=== PATIENT | male | born 2000 | race Caucasian/White ===

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

== ENCOUNTER 2021-01-09 16:50 | Emergency (ER) | payer MEDICAID, SELFPAY ==
--- NOTE | 2021-01-09 16:53 | XRR_ITS ---
PROCEDURE INFORMATION: Exam: XR Chest Exam date and time: 01/09/2021 4:53 PM Age: 20 years old Clinical indication: Sternal or substernal pain; Additional info: Chest pain TECHNIQUE: Imaging protocol: XR of the chest. Views: 1 view. COMPARISON: CR XR chest 1V portable [id number] 09/15/2020 6:51 AM FINDINGS: Lungs: No consolidation. There is a calcified granuloma in the right mid lung. Pleural spaces: Unremarkable. No pleural effusion. No pneumothorax. Heart/Mediastinum: Cardiac and mediastinal contours are within normal limits. Bones/joints: Unremarkable. XR/XR chest 1V portable [id number] IMPRESSION: No acute infiltrates. Radiation Dose CTDIVOL = (mGy): DLP = (mGy-cm)
[2021-01-09 16:55] VITALS: BP 158/111; PULSE 103; RESP 20; TEMP 36.6; O2SAT 96; BMI 40.3
[2021-01-09 17:06] VITALS: BP 147/92; PULSE 100; RESP 18; O2SAT 96
--- NOTE | 2021-01-09 17:25 | ED_ITS ---
HPI - Chest Pain General: Chief Complaint: Chest Pain Stated Complaint: SUBSTERNAL CHEST PAIN Time Seen by Provider: 01/09/21 16:52 History of Present Illness: HPI narrative: 20-year-old male presents emergency room with a complaint of having had chest pain all day today. Started already o'clock's morning persisted to this afternoon he states he usually takes his medications regularly but because of this new job he has not been able to do it. He now states he does not have any chest pain at all. Did not radiate into his neck or arm or back he denies any cough no fever sweats or chills. MD complaint: chest pain Onset (ago): hour(s) Timing of current episode: now resolved Onset: during rest Pain location: substernal Pain radiation: none Severity: mild Quality: aching and heaviness Relieving factors: nothing Exacerbating factors: nothing Associated symptoms: Deny abdominal pain, diaphoresis, dyspnea, fever(s), leg ed rosibel, nausea, palpitations, sense of impending doom, syncope or vomiting Treatment prior to arrival: none Review of Systems Const: Denies: fever(s) or diaphoresis ENMT: Denies: throat pain, ear or mastoid pain, nasal discharge or nasal congestion Card: Denies: palpitations or syncope Resp: Denies: dyspnea GI: Denies: abdominal pain, nausea or vomiting : Denies: flank pain, dysuria, urinary frequency or urinary urgency Skin/Breast: Denies: rash or pruritus [facility] PFSH: Medical History Condyloma acuminatum due to human papillomavirus Hypertension Morbid obesity with BMI of 40.0-44.9, adult Psychiatric care Schizoaffective disorder Surgical History No pertinent past surgical history Family History Grandmother Diabetes Other MDD (major depressive disorder), single episode, severe with psychotic features Social History Smoking and tobacco status: never smoked Quit status (tobacco): has quit using tobacco Second hand smoke exposure: Yes Alcohol intake: never Lives independently: Yes Marital status: Single Current gender identity: Male Physical Exam Const: COMMON NORMALS: no acute distress GENERAL APPEARANCE: cooperative and comfortable ORIENTATION/CONSCIOUSNESS: Yes awake, Yes oriented to person, Yes oriented to place and Yes oriented to time HENMT: COMMON NORMALS: normocephalic, atraumatic and hearing grossly normal bilaterally HEAD & SCALP: normocephalic and atraumatic Neck/C-Spine: COMMON NORMALS: no JVD Resp: COMMON NORMALS: normal respiratory effort, No retractions, No use of accessory muscles and clear to auscultation bilaterally AUSCULTATION: clear to auscultation bilaterally Cardio: COMMON NORMALS: no JVD, regular rate, regular rhythm and No murmurs present (Cardio) RATE: regular rate RHYTHM: regular rhythm GI: COMMON NORMALS: Soft to palpation and No hepatosplenomegaly present AUSCULTATION: Yes normoactive bowel sounds PALPATION: Yes Soft to palpation, No Tenderness to palpation present (GI), No Guarding due to palpation present (GI) and Yes No hepatosplenomegaly present Extremity: COMMON NORMALS: normal to inspection, capillary refill normal, no clubbing, cyanosis or edema, no calf tenderness and no pedal edema Neuro: SENSORIUM/ORIENTATION: Yes oriented to person, Yes oriented to place and Yes oriented to time Skin: COMMON NORMALS: no rashes or lesions noted GENERAL SKIN EXAM: no rashes or lesions noted Course Vital Signs: Vital signs: Vital Signs Temperature 97.8 F 01/09/21 16:55 Pulse Rate 102 H 01/09/21 18:29 Respiratory Rate 18 01/09/21 18:29 Blood Pressure 171/120 01/09/21 18:29 Pulse Oximetry 96 01/09/21 18:29 MDM - Chest Pain MDM Narrative: Medical decision making narrative: Labs imaging and EKG reviewed symptoms resolved suspect is GI related start omeprazole discharge home follow-up as needed do recommend he follow-up with primary care doctor reviews blood pressure is markedly elevated. Lab Data: Labs: Lab Results 01/09/21 01/09/21 01/09/21 17:20 17:20 17:20 WBC 6.9 10^3/uL 10^3/ uL (4.5-13.0) RBC 5.20 10^6/uL 10^6 /uL (4.1-5.3) Hgb 15.3 g/dL g/dL (11.7-16.6) Hct 44.8 % % (42.0-52.0) MCV 86.2 fl fl (80-94) MCH 29.4 pg pg (28.0-34.0) MCHC 34.2 g/dL g/dL (30.0-36.0) RDW 12.1 % % (12.1-15.1) Plt Count 262 10^3/cmm 10^3 /cmm (130-400) MPV 10.6 fL H fL (7.4-10.4) Neut % (Auto) 71.8 % % Lymph % (Auto) 15.5 % % [place] % (Auto) 9.9 % % Eos % (Auto) 1.5 % % Baso % (Auto) 0.9 % % Neut # (Auto) 4.95 10^3/uL 10^3 /uL (1.8-8.0) Lymph # (Auto) 1.1 10^3/uL L 10^ 3/uL (1.5-6.5) [place] # (Auto) 0.7 10^3/uL 10^3/ uL (0.2-0.9) Eos # (Auto) 0.1 10^3/uL 10^3/ uL (0.0-0.8) Baso # (Auto) 0.1 10^3/uL 10^3/ uL (0.0-0.1) Nucleated RBC % (a uto) 0 % % Nucleated RBCs # 0.0 /100WBC /100W BC Sodium 139 mmol/L mmol/L (136-145) Potassium 3.7 mmol/L mmol/L (3.5-5.1) Chloride 104 mmol/L mmol/L (98-107) Carbon Dioxide 22 mmol/L mmol/L (22-29) Anion Gap 16.7 (5-19) BUN 13 mg/dL mg/dL (6-20) Creatinine 0.8 mg/dL mg/dL (0.7-1.2) GFR Calculation 124.5 mL/min mL/m in (90-130) Glucose 121 mg/dL H mg/dL (65-115) Calculated Osmolal ity 289 mOsm/kg mOsm/ kg (285-295) Calcium 9.1 mg/dL mg/dL (8.5-10.5) Total Bilirubin 0.4 mg/dL mg/dL (0.15-1.2) AST 24 U/L U/L (0-40) ALT 35 U/L U/L (0-41) Alkaline Phosphata se 62 IU/L IU/L (40-130) Troponin T Baselin e 6 ng/L ng/L (0-15) Total Protein 7.1 g/dL g/dL (6.6-8.7) Albumin 4.2 g/dL g/dL (3.5-5.2) Globulin 2.9 g/dL g/dL (1.3-4.6) Discharge Plan Discharge Patient Disposition: Home Clinical Impression: Atypical chest pain, Elevated blood pressure reading Condition: Stable Prescriptions: New omeprazole 20 mg capsule,delayed release(DR/EC) 20 mg PO DAILY 28 Days RF: 0 No Action lisinopril 10 mg tablet 10 mg PO DAILY Qty: 30 RF: 5 citalopram 20 mg tablet 20 mg PO DAILY 30 Days Qty: 30 RF: 3 lurasidone 120 mg tablet 120 mg PO .qhs 30 Days Qty: 30 RF: 3 prazosin 5 mg capsule 5 mg PO .qhs 30 Days Qty: 30 RF: 3 ibuprofen 600 mg tablet 600 mg PO Q8H PRN (Reason: pain) 10 Days Qty: 30 RF: 0 Discharge Orders: Discharge ED (Routine); Ordered 01/09/21 Ordered By: Jovani Dumont Referrals: Gildardo Cohn MD [Primary Care Provider] - Discharge Diet: Usual diet Discharge Activity: Increase activity as tolerated Patient Instructions: Opioid Safety Activity Restrictions/Additional Instructions: Start Prilosec 20 mg daily follow-up with your primary care doctor within the week to recheck blood pressure. 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
[2021-01-09 17:26] LABS: Basophils # 0.1 10^3/uL (0.0-0.1); Basophils % 0.9 %; Eosinophils # 0.1 10^3/uL (0.0-0.8); Eosinophils % 1.5 %; Hematocrit 44.8 % (42.0-52.0); Hemoglobin 15.3 g/dL (11.7-16.6); Lymphocytes # 1.1 10^3/uL (1.5-6.5); Lymphocytes % 15.5 %; Mean Corpuscular HGB Conc 34.2 g/dL (30.0-36.0); Mean Corpuscular Hemoglobin 29.4 pg (28.0-34.0); Mean Corpuscular Volume 86.2 fl (80-94); Mean Platelet Volume 10.6 fL (7.4-10.4); Monocytes # 0.7 10^3/uL (0.2-0.9); Monocytes % 9.9 %; Neutrophils # 4.95 10^3/uL (1.8-8.0); Neutrophils % 71.8 %; Nucleated Red Blood Cells % 0 %; Platelet Count 262 10^3/cmm (130-400); Red Cell Distribution Width 12.1 % (12.1-15.1); White Blood Count 6.9 10^3/uL (4.5-13.0)
[2021-01-09 17:47] LABS: Alanine Aminotransferase 35 U/L (0-41); Albumin Level 4.2 g/dL (3.5-5.2); Alkaline Phosphatase 62 IU/L (40-130); Anion Gap 16.7 (5-19); Aspartate Amino Transferase 24 U/L (0-40); Blood Urea Nitrogen 13 mg/dL (6-20); Calcium 9.1 mg/dL (8.5-10.5); Carbon Dioxide 22 mmol/L (22-29); Chloride 104 mmol/L (98-107); Globulin 2.9 g/dL (1.3-4.6); Glomerular Filtration Rate 124.5 mL/min (90-130); Glucose 121 mg/dL (65-115); Osmolality Calculated 289 mOsm/kg (285-295); Potassium 3.7 mmol/L (3.5-5.1); Sodium 139 mmol/L (136-145); Total Bilirubin 0.4 mg/dL (0.15-1.2); Total Protein 7.1 g/dL (6.6-8.7); Troponin(5th) Baseline 6 ng/L (0-15)
[2021-01-09 18:29] VITALS: BP 171/120; PULSE 102; RESP 18; O2SAT 96
--- NOTE | 2021-01-09 18:53 | ECG_ITS ---
[facility] Test Date: 2021-01-09 Pat Name: Damián Parnell Department: Room: Gender: Male [place]: : 2000 Requested By: Jovani Atkinson Order Number: [id number] Jose G MD: Evelyn Carrillo M.D. Measurements Intervals Imogene Rate: 95 P: 57 WV: 149 QRS: 27 QRSD: 81 T: 19 QT: 319 QTc: 403 Interpretive Statements SINUS RHYTHM No previous ECG available for comparison Electronically Signed On 01-11-2021 7:42:40 DIRECTOR OF PARKS AND RECREATION by Evelyn Carrillo M.D. [id number]
== END 2021-01-09 18:31 | disposition home or self-care (01) ==
PROVIDERS: Emergency Provider Family Medicine; PCP Family Medicine Adult Medicine
DX: R07.89 Other chest pain (principal); R03.0 Elevated blood-pressure reading, without diagnosis of hypertension; I10 Essential (primary) hypertension
CPT/HCPCS: 71045; 80053; 84484; 85025; 93005; 99283

== ENCOUNTER → 2021-01-23 16:17 | Outpatient (BNVA) | payer MEDICAID, SELFPAY | PROVIDERS: PCP Family Medicine Adult Medicine; Visit Provider Nurse Practitioner Family | DX: I10 Essential (primary) hypertension (principal); M94.0 Chondrocostal junction syndrome [Tietze]; K21.9 Gastro-esophageal reflux disease without esophagitis | CPT/HCPCS: 80053; 82607; 83735; 84443; 85025 ==

== ENCOUNTER → 2021-02-07 09:48 | Outpatient (BNVA) | payer MEDICAID, SELFPAY | PROVIDERS: PCP Family Medicine Adult Medicine; Visit Provider Nurse Practitioner Family | DX: Z20.822 Contact with and (suspected) exposure to COVID-19 (principal) | CPT/HCPCS: 87635 ==

== ENCOUNTER → 2021-05-09 13:44 | Outpatient (BNVA) | payer MEDICAID, SELFPAY | PROVIDERS: PCP Family Medicine Adult Medicine; Visit Provider Psychiatry & Neurology Psychiatry | DX: F25.9 Schizoaffective disorder, unspecified (principal); F32.3 Major depressive disorder, single episode, severe with psychotic features | CPT/HCPCS: 99214 ==

== ENCOUNTER 2021-10-23 15:10 | Inpatient (IN) | payer MEDICAID, SELFPAY ==
[2021-10-23 15:15] VITALS: BP 138/84; PULSE 107; RESP 18; TEMP 36.8; O2SAT 97; BMI 39.5
[2021-10-23 15:53] LABS: Basophils # 0.1 10^3/uL (0.0-0.1); Basophils % 1.3 %; Eosinophils # 0.2 10^3/uL (0.0-0.8); Eosinophils % 2.4 %; Lymphocytes # 1.9 10^3/uL (1.5-6.5); Lymphocytes % 23.8 %; Mean Corpuscular HGB Conc 32.7 g/dL (30.0-36.0); Mean Corpuscular Hemoglobin 28.2 pg (28.0-34.0); Mean Corpuscular Volume 86.3 fl (80-94); Mean Platelet Volume 11.4 fL (7.4-10.4); Monocytes # 0.6 10^3/uL (0.2-0.9); Monocytes % 6.9 %; Neutrophils % 65.3 %; Nucleated Red Blood Cells % 0 %; Platelet Count 266 10^3/cmm (130-400); Red Blood Count 5.68 10^6/uL (4.1-5.3); Red Cell Distribution Width 12.3 % (12.1-15.1)
--- NOTE | 2021-10-23 16:08 | W.ED.PSYCHS ---
HPI - Psych General: Chief Complaint: Psychiatric Symptoms Stated Complaint: HALLUCINATIONS/ HI Time Seen by Provider: 10/23/21 15:22 Source: patient Mode of arrival: ambulatory Limitations: no limitations History of Present Illness: 21-year-old male presents emergency room with acute psychosis with auditory and visual hallucinations last 2 days he is complaining of suicidal homicidal ideation that was returning on the order to get his father's gun or knife and kill someone else. He is very calm about this. He realizes the voices are not real. Patient evidently has a history of schizophrenia was taking Latuda but is not taking anything at this point. Patient denies taking anything to harm himself or having done anything to harm himself to this point. MD complaint: suicidal ideation Onset (ago): day(s) (2) Duration: constant History of same: Yes Relieving factors: none Associated symptoms: Reports auditory hallucinations, visual hallucinations, homicidal ideation and suicidal ideation Treatments prior to arrival: none If self harm: admits thoughts of self harm and has plan Review of Systems Const: Denies: fever(s), chills, body aches, change in appetite, fatigue or malaise ENMT: Denies: throat pain, ear or mastoid pain, nasal discharge or nasal congestion Card: Denies: chest pain, palpitations, irregular heart rhythm, edema, dyspnea on exertion or orthopnea Resp: Denies: dyspnea, productive cough or non-productive cough GI: Denies: abdominal pain, nausea, vomiting, hematemesis, coffee ground emesis, diarrhea, constipation, bloating, hematochezia or melena : Denies: flank pain, dysuria, urinary frequency or urinary urgency Skin/Breast: Denies: rash or pruritus Psych: Reports: visual hallucinations, auditory hallucinations, suicidal ideation and homicidal ideation [facility] ED PFSH: Medical History Condyloma acuminatum due to human papillomavirus Hypertension Morbid obesity with BMI of 40.0-44.9, adult Psychiatric care Schizoaffective disorder Surgical History No pertinent past surgical history Family History Grandmother Diabetes Other MDD (major depressive disorder), single episode, severe with psychotic features Social History Smoking and tobacco status: never smoked Quit status (tobacco): has quit using tobacco Second hand smoke exposure: Yes Alcohol intake: never Lives independently: Yes Marital status: Single Current gender identity: Male Physical Exam Const: COMMON NORMALS: average body habitus GENERAL APPEARANCE: cooperative and comfortable ORIENTATION/CONSCIOUSNESS: Yes awake, Yes oriented to person, Yes oriented to place and Yes oriented to time HENMT: COMMON NORMALS: normocephalic and atraumatic HEAD & SCALP: normocephalic and atraumatic Resp: COMMON NORMALS: normal respiratory effort, No retractions, No use of accessory muscles and clear to auscultation bilaterally AUSCULTATION: clear to auscultation bilaterally Cardio: COMMON NORMALS: regular rate, regular rhythm and No murmurs present (Cardio) RATE: regular rate RHYTHM: regular rhythm GI: COMMON NORMALS: Soft to palpation and No hepatosplenomegaly present AUSCULTATION: Yes normoactive bowel sounds PALPATION: Yes Soft to palpation, No Tenderness to palpation present (GI), No Guarding due to palpation present (GI) and Yes No hepatosplenomegaly present Extremity: COMMON NORMALS: normal to inspection, capillary refill normal, no clubbing, cyanosis or edema, no calf tenderness and no pedal edema Neuro: SENSORIUM/ORIENTATION: Yes oriented to person, Yes oriented to place and Yes oriented to time Skin: COMMON NORMALS: no rashes or lesions noted GENERAL SKIN EXAM: no rashes or lesions noted Course Vital Signs: Vital signs: Vital Signs Temperature 98.2 F 10/23/21 15:15 Pulse Rate 107 H 10/23/21 15:15 Respiratory Rate 18 10/23/21 15:15 Blood Pressure 138/84 10/23/21 15:15 Pulse Oximetry 97 10/23/21 15:15 Oxygen Delivery Me thod 10/23/21 15:15 MDM - Psych Medical Decision Making Patient having auditory visual hallucinations that are instructing him to harm others including himself with a specific plan of using a knife or gun. Placement 96-hour hold discussed Dr. Ace orders written for admission to [facility]. Medical Records I reviewed the patient's medical records. Lab Data I reviewed the patient's lab results. : 10/23/21 15:33 10/23/21 15:33 Laboratory Results WBC 8.0 10^3/uL (4.5-13.0) 10/23/21 15: RBC 5.68 10^6/uL (4.1-5.3) H 10/23/21 15:33 Hgb 16.0 g/dL (11.7-16.6) 10/23/21 15:33 Hct 49.0 % (42.0-52.0) 10/23/21 15: MCV 86.3 fl (80-94) 10/23/21 15: MCH 28.2 pg (28.0-34.0) 10/23/21 15: MCHC 32.7 g/dL (30.0-36.0) 10/23/21 15: RDW 12.3 % (12.1-15.1) 10/23/21 15: Plt Count 266 10^3/cmm (130-400) 10/23/21 15: MPV 11.4 fL (7.4-10.4) H 10/23/21 15:33 Neut % (Auto) 65.3 % 10/23/21 15: Lymph % (Auto) 23.8 % 10/23/21 15:33 [place] % (Auto) 6.9 % 10/23/21 15: Eos % (Auto) 2.4 % 10/23/21 15:33 Baso % (Auto) 1.3 % 10/23/21 15: Neut # (Auto) 5.20 10^3/uL (1.8-8.0) 10/23/21 15:33 Lymph # (Auto) 1.9 10^3/uL (1.5-6.5) 10/23/21 15:33 [place] # (Auto) 0.6 10^3/uL (0.2-0.9) 10/23/21 15: Eos # (Auto) 0.2 10^3/uL (0.0-0.8) 10/23/21 15:33 Baso # (Auto) 0.1 10^3/uL (0.0-0.1) 10/23/21 15: Nucleated RBC % (auto) 0 % 10/23/21 15:33 Nucleated RBCs # 0.0 /100WBC 10/23/21 15:33 Sodium 141 mmol/L (136-145) 10/23/21 15:33 Potassium 3.9 mmol/L (3.5-5.1) 10/23/21 15:33 Chloride 103 mmol/L (98-107) 10/23/21 15:33 Carbon Dioxide 26 mmol/L (22-29) 10/23/21 15:33 Anion Gap 15.9 (5-19) 10/23/21 15:33 BUN 11 mg/dL (6-20) 10/23/21 15:33 Creatinine 0.8 mg/dL (0.7-1.2) 10/23/21 15:33 GFR Calculation 123.2 mL/min (90-130) 10/23/21 15:33 Glucose 87 mg/dL (65-115) 10/23/21 15:33 Calculated Osmolality 291 mOsm/kg (285-295) 10/23/21 15:33 Calcium 10.3 mg/dL (8.5-10.5) 10/23/21 15:33 Total Bilirubin 0.5 mg/dL (0.15-1.2) 10/23/21 15:33 AST 23 U/L (0-40) 10/23/21 15:33 ALT 35 U/L (0-41) 10/23/21 15:33 Alkaline Phosphatase 66 U/L (40-130) 10/23/21 15:33 Total Protein 8.1 g/dL (6.6-8.7) 10/23/21 15:33 Albumin 5.0 g/dL (3.5-5.2) 10/23/21 15:33 Globulin 3.1 g/dL (1.3-4.6) 10/23/21 15:33 Salicylates < 0.3 mg/dL (3-10) L 10/23/21 15:33 Acetaminophen < 5.0 ug/mL (10-30) L 10/23/21 15:33 Discharge Plan Discharge Patient Disposition: Admitted As Inpatient Admit Provider: Heber Ace Clinical Impression: Acute psychosis, Suicidal ideation, Homicidal ideation Condition: Stable Coding Level of Care Code ED Head Of Science for Chg Fwd Exam Detailed
[2021-10-23 16:39] LABS: Alanine Aminotransferase 35 U/L (0-41); Alkaline Phosphatase 66 U/L (40-130); Anion Gap 15.9 (5-19); Aspartate Amino Transferase 23 U/L (0-40); Blood Urea Nitrogen 11 mg/dL (6-20); Calcium 10.3 mg/dL (8.5-10.5); Carbon Dioxide 26 mmol/L (22-29); Chloride 103 mmol/L (98-107); Globulin 3.1 g/dL (1.3-4.6); Glomerular Filtration Rate 123.2 mL/min (90-130); Glucose 87 mg/dL (65-115); Osmolality Calculated 291 mOsm/kg (285-295); Potassium 3.9 mmol/L (3.5-5.1); Sodium 141 mmol/L (136-145); Total Bilirubin 0.5 mg/dL (0.15-1.2); Total Protein 8.1 g/dL (6.6-8.7)
[2021-10-23 16:44] LABS: Acetaminophen < 5.0 ug/mL (10-30); Salicylate < 0.3 mg/dL (3-10)
--- NOTE | 2021-10-23 16:58 | PC.PHAR ---
PT USED TO BE ON CITALOPRAM 20 MG, LISINOPRIL 10MG, LURASIDONE 20MG, MELOXICAM 15MG, AND OMEPRAZOLE 20MG- PT STATES HE HAS NOT TAKEN MEDICATIONS OF ANY KIND SINCE 06/2021
[2021-10-23 18:29] VITALS: BP 165/90; PULSE 112; RESP 16; TEMP 36.8; O2SAT 98
[2021-10-23] MEDS: OLANZapine 5 mg ODT PO (19:24)
[2021-10-23] MEDS: lurasidone 20 mg Tablet PO (19:24)
[2021-10-23] MEDS: nicotine 2 mg Gum BUCCAL (19:52)
[2021-10-23 22:00] VITALS: BP 165/90; PULSE 112; RESP 16; TEMP 36.8; O2SAT 98
[2021-10-24 06:00] VITALS: BP 116/73; PULSE 88; RESP 16; TEMP 36.7; O2SAT 98
[2021-10-24] MEDS: hyDROXYzine 25 mg Capsule 50 MG PO (07:06)
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
[2021-10-24] MEDS: citalopram 20 mg Tablet PO (08:38)
[2021-10-24] MEDS: lisinopril 10 mg Tablet PO (08:38)
[2021-10-24] MEDS: pantoprazole DR 40 mg Tablet PO (08:38)
[2021-10-24] MEDS: meloxicam 7.5 mg tablet 15 MG PO (08:38)
[2021-10-24 14:00] VITALS: BP 114/77; PULSE 92; RESP 18; TEMP 36.6; O2SAT 98
[2021-10-24 20:00] VITALS: BP 110/70; PULSE 90; RESP 17; TEMP 36.9; O2SAT 98
[2021-10-24] MEDS: lurasidone 20 mg Tablet PO (20:22)
[2021-10-25] MEDS: trazodone 50 mg Tablet PO (01:30)
[2021-10-25 06:00] VITALS: BP 117/72; PULSE 85; RESP 16; TEMP 36.5; O2SAT 99
[2021-10-25] MEDS: haloperidol 5 mg Tablet PO ×2 (07:40→16:40)
[2021-10-25] MEDS: nicotine 2 mg Gum BUCCAL (09:03)
[2021-10-25] MEDS: citalopram 20 mg Tablet PO (09:03)
[2021-10-25] MEDS: lisinopril 10 mg Tablet PO (09:03)
[2021-10-25] MEDS: meloxicam 7.5 mg tablet 15 MG PO (09:03)
[2021-10-25 14:00] VITALS: BP 122/74; PULSE 97; RESP 18; TEMP 36.7; O2SAT 98
--- NOTE | 2021-10-25 15:19 | P.NPUPN_ITS ---
Subjective NPU Subjective: Patient presents today reporting that he has really struggled with auditory visual hallucinations today. We discussed the risks benefits and alternatives of initiating Invega and he understood and agreed to proceed as is documented in this note. Otherwise he reports that he is eating and sleeping fine and is dealing with these perceptual disturbances. He was concerned about where he would go when he is discharged because of family concern surrounding his psychotic behavior. Mental Status Exam MSE Comments: This is an obese white male with hospital scrubs on with limited grooming and eye contact. No abnormal movements. Cooperative with exam in mild distress. Speech was decreased rate and volume. Mood described as okay, affect flat. Thought process organized. Thought content: Patient denied current suicidal or homicidal ideation, there were no delusions reported or noted, he endorsed auditory or visual hallucinations that were troubling. Attention and concentration appeared intact and memory was mostly reliable but none were formally tested. He is alert and oriented x3. Insight and judgment are limited and impulse control is limited. Vitals/I&O/Wt Last Vital Signs Temp 98.1 F 10/25/21 14:00 Pulse 97 10/25/21 14:00 Resp 18 10/25/21 14:00 BP 122/74 10/25/21 14:00 Pulse Ox 98 10/25/21 14:00 O2 Del Method 10/25/21 14:00 Data NPU : 10/23/21 15:33 10/23/21 15:33 A&P Assessment and plan (1) Acute psychosis: Status: Acute (2) Suicidal ideation: Status: Acute (3) Homicidal ideation: Status: Acute (4) Schizoaffective disorder: Status: Acute (5) Morbid obesity with BMI of 40.0-44.9, adult: Status: Acute (6) Parent-child relational problem: Status: Acute Plan This is an 19-year-old white male with a long history of psychiatric care, mild developmental delay versus intellectual disability with previous diagnoses of ADHD, schizophrenia/psychosis, major depressive disorder recurrent severe with psychotic features and with significant issues with anger management. 1.? Restart home medications. We will likely discontinue the Latuda. But for now start Invega 6 mg p.o. daily. 2.? Continue every 15 minute checks for safety. 3.? Encourage individual, group and milieu therapy. 4.? We will attempt to get collateral information on this recent event. Involuntary Hold Information 96 Hour Hold: 96 Hour Involuntary Admission: Yes 96 Hour Hold Ending Date: 10/27/21 96 Hour Hold Ending Time: 18:30 Attestations NPU Medical Necessity Statement*: Inpatient hospitalization is medically necessary and the clinically appropriate intervention at this time. We will monitor medications make changes. Likely length of stay 3-5 days. 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
--- NOTE | 2021-10-25 16:40 | PC.NURSE ---
PT TO NURSES STATION REPORTS HEARING VOICES THAT ARE BECOMING LOUDER , REQUESTS PRN HALDOL DUE TO EFFECTIVENESS OF MED THIS AM TO QUIET THE VOICES. PRN HALDOL 5MG GIVEN. PT TO DAYROOM TO WATCH TV, INSTRUCTED TO LET NURSING STAFF KNOW IF HALDOL ISNT EFFECTIVE, PT VERB UNDERSTANDING
[2021-10-25] MEDS: paliperidone ER 6 mg Tablet PO (17:07)
--- NOTE | 2021-10-25 17:48 | PC.NURSE ---
DURING MORNING ASSESSMENT PT ENDORSED HAVING AVH. CONTINUES TO BE DEMONIC FIGURES AND SHADOWS ALONG WITH COMMAND VOICES. PT IS CALM BUT ASK FOR SOMETHING TO HELP WITH THE HALLUCINATIONS. HALDOL PO WAS GIVEN. PROVIDER NOTIFIED.
[2021-10-25 19:59] VITALS: RESP 17
[2021-10-25] MEDS: lurasidone 20 mg Tablet PO (21:36)
[2021-10-26 06:00] VITALS: BP 133/92; PULSE 81; RESP 18; O2SAT 99
[2021-10-26] MEDS: haloperidol 5 mg Tablet PO (08:45)
[2021-10-26] MEDS: paliperidone ER 6 mg Tablet PO (08:45)
[2021-10-26] MEDS: meloxicam 7.5 mg tablet 15 MG PO (08:45)
[2021-10-26] MEDS: citalopram 20 mg Tablet PO (08:45)
[2021-10-26] MEDS: lisinopril 10 mg Tablet PO (08:45)
--- NOTE | 2021-10-26 09:49 | PC.NURSE ---
PT RESTING IN BED FACING WALL NOT DOORWAY DUE TO SEEING SHADOWS. STATES FACING THIS WAY MAKES IT BETTER, I DON'T SEE THE SHADOWS MUCH. PT DENIES PAIN. DENIES SI/HI AT THIS TIME. PT DOES ENDORSE HEARING COMMANDING VOICES THAT ARE TELLING HIM TO LEAVE AND NOT GET HELP. PT ALSO ENDORSES SEEING SHADOWS. HALDOL WAS REQUESTED BY PT. PT REPORTED THE HALDOL IS THE ONLY THING THAT HELPS WITH HIS VOICES. HALDOL 5 MG WAS GIVEN ORDERED. ALL QUESTIONS ANSWERED AND SUPPORT WAS VOICED.
[2021-10-26 14:00] VITALS: BP 117/80; PULSE 86; RESP 18; TEMP 36.6; O2SAT 96
[2021-10-26] MEDS: benztropine 1 mg Tablet PO (15:10)
--- NOTE | 2021-10-26 15:10 | PC.NURSE ---
Addendum entered by Monica Mejia RN 10/26/21 16:16: NOTIFIED DR. CRESPO OF INCREASED PAIN IN JAW. PT BECAME TEARFUL. TYLENOL 650 MG WAS GIVEN FOR JAW PAIN 09/10. PT DID REPORT PAIN IMPROVED AFTER TAKING TYLENOL AND COGENTIN. AFTER DISCUSSION DR. CRESPO GAVE ORDERS TO DISCONTINUE LATUDA 20 MG BEDTIME. Original Note: PRN MEDICATION PT REPORTS IT FEELS LIKE MY TONGUE IS GOING TO SWALLOW ITSELF AND ITS HARD FOR ME TO TALK. DR. CRESPO NOTIFIED IN PERSON. COGENTIN MG GIVEN ORDERED. DR. CRESPO INSTRUCTED THIS RN TO GIVE THE COGENTIN ON MAR ORDERED. EDUCATION PROVIDED TO PT TO LET THIS RN KNOW IF SYMPTOMS WORSEN OR GET BETTER. PT VERBALIZED UNDERSTANDING.
[2021-10-26] MEDS: acetaminophen 325 mg Tablet 650 MG PO (15:27)
[2021-10-26] MEDS: diphenhydrAMINE 50 mg Capsule PO (17:35)
--- NOTE | 2021-10-26 17:37 | PC.NURSE ---
PT STARTED HAVING JAW PAIN AGAIN AND STATES HE JAW IS TIGHT. DR. CRESPO NOTIFIED AND 50 MG OF BENADRYL PO Q 4 HOURS PRN. MEDICATION WAS GIVEN ORDERED. PT THEN STATED HIS JAW PAIN WAS 7/10, NEW ORDERS FOR IBUPROFEN 600 MG PO Q 6 HOURS PRN PAIN. FIRST DOSE OF IBUPROFEN GIVEN ORDERED. PT EDUCATED TO NOTIFY STAFF IF SYMPTOMS WORSES. VITALS OBATINED SPO2 96% ON RA, HR 89 BP 149/78 RR 20. ALL QUESTIONS ANSWERED AND SUPPORT VOICED.
[2021-10-26] MEDS: ibuprofen 600 mg Tablet PO (18:02)
--- NOTE | 2021-10-26 18:26 | P.NPUPN_ITS ---
Subjective NPU Subjective: Patient presents today reporting that he is doing better as far as the voices but at 1 point he was having some EPS with some locking of his jaw which made him quite distressed. Was identified that he had multiple doses of Haldol even after we had discussed changing to Invega due to attempts to control the voices more quickly. We discussed the fact that in addition to his Latuda likely cause this to be overly he discussed with medicine alternatives of discontinuing the Latuda and avoiding Haldol allowing the Invega to do its job and he understood and agreed to proceed as is documented in this note. Mental Status Exam MSE Comments: This is an obese white male with hospital scrubs on with i mproving grooming and eye contact. No abnormal movements. Cooperative with exam in mild distress. Speech was decreased rate and volume. Mood described as a little better, affect flat. Thought process organized. Thought content: Patient denied current suicidal or homicidal ideation, there were no delusions reported or noted, he endorsed reduction in his auditory and visual hallucinations that were troubling. Attention and concentration appeared intact and memory was mostly reliable but none were formally tested. He is alert and oriented x3. Insight and judgment are limited and impulse control is limited. Vitals/I&O/Wt Last Vital Signs Temp 98.1 F 10/26/21 22:00 Pulse 81 10/26/21 22:00 Resp 18 10/26/21 22:00 BP 111/60 10/26/21 22:00 Pulse Ox 97 10/26/21 22:00 O2 Del Method 10/26/21 22:00 Data NPU : 10/23/21 15:33 10/23/21 15:33 A&P Assessment and plan (1) Acute psychosis: Status: Acute (2) Suicidal ideation: Status: Acute (3) Homicidal ideation: Status: Acute (4) Schizoaffective disorder: Status: Acute (5) Morbid obesity with BMI of 40.0-44.9, adult: Status: Acute (6) Parent-child relational problem: Status: Acute Plan This is an 19-year-old white male with a long history of psychiatric care, mild developmental delay versus intellectual disability with previous diagnoses of ADHD, schizophrenia/psychosis, major depressive disorder recurrent severe with psychotic features and with significant issues with anger management. 1.? Restart home medications. Discontinue Latuda and started Invega 6 mg p.o. daily. Advised patient to avoid the as needed's for Haldol at this point and discussed with the nurses. 2.? Continue every 15 minute checks for safety. 3.? Encourage individual, group and milieu therapy. 4.? We will attempt to get collateral information on this recent event. Involuntary Hold Information 96 Hour Hold: 96 Hour Involuntary Admission: Yes 96 Hour Hold Ending Date: 10/27/21 96 Hour Hold Ending Time: 18:30 Attestations NPU Medical Necessity Statement*: Inpatient hospitalization is medically necessary and the clinically appropriate intervention at this time. We will monitor medications make changes. Likely length of stay 1-3 days. 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
[2021-10-26] MEDS: trazodone 50 mg Tablet PO (21:59)
[2021-10-26 22:00] VITALS: BP 111/60; PULSE 81; RESP 18; TEMP 36.7; O2SAT 97
[2021-10-27] MEDS: ibuprofen 600 mg Tablet PO ×2 (01:30→15:06)
[2021-10-27] MEDS: acetaminophen 325 mg Tablet 650 MG PO (05:04)
[2021-10-27] MEDS: diphenhydrAMINE 50 mg Capsule PO (05:04)
[2021-10-27 06:00] VITALS: BP 149/100; PULSE 104; RESP 18; TEMP 36.6; O2SAT 98
[2021-10-27] MEDS: nicotine 2 mg Gum BUCCAL ×4 (06:59→13:38)
[2021-10-27] MEDS: citalopram 20 mg Tablet PO (08:47)
[2021-10-27] MEDS: benztropine 1 mg Tablet PO (08:47)
[2021-10-27] MEDS: lisinopril 10 mg Tablet PO (08:47)
[2021-10-27] MEDS: meloxicam 7.5 mg tablet 15 MG PO (08:47)
[2021-10-27] MEDS: paliperidone ER 6 mg Tablet PO (08:47)
--- NOTE | 2021-10-27 08:48 | PC.NURSE ---
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
[2021-10-27 10:33] VITALS: BP 149/100; PULSE 104; RESP 18; TEMP 36.6; O2SAT 98
--- NOTE | 2021-10-27 11:44 | W.PM.NPUDCS ---
Diagnoses at Discharge Discharge Diagnosis (1) Acute psychosis: Status: Acute (2) Suicidal ideation: Status: Acute (3) Homicidal ideation: Status: Acute (4) Schizoaffective disorder: Status: Acute (5) Morbid obesity with BMI of 40.0-44.9, adult: Status: Acute (6) Parent-child relational problem: Status: Acute Reason for Visit Reason for Visit: HALLUCINATIONS/ HI Brief History: History of Present Illness Damián Parnell is a 21 year old male who presented to the emergency department with the following report: Chief Complaint: Psychiatric Symptoms Stated Complaint: HALLUCINATIONS/ HI Time Seen by Provider: 10/23/21 15:22 Source: patient Mode of arrival: ambulatory Limitations: no limitations History of Present Illness:?? 21-year-old male presents emergency room with acute psychosis with auditory and visual hallucinations last 2 days he is complaining of suicidal homicidal ideation that was returning on the order to get his father's gun or knife and kill someone else.? He is very calm about this.? He realizes the voices are not real.? Patient evidently has a history of schizophrenia was taking Latuda but is not taking anything at this point.? Patient denies taking anything to harm himself or having done anything to harm himself to this point. MD complaint: suicidal ideation Onset (ago): day(s) (2) Duration: constant History of same: Yes Relieving factors: none Associated symptoms: Reports auditory hallucinations, visual hallucinations, homicidal ideation and suicidal ideation Treatments prior to arrival: none If self harm: admits thoughts of self harm and has plan. He was admitted to the neuropsychiatric unit for definitive treatment of those issues.? He presents today reporting that there have not been any significant changes since he was seen by this health science writer near [place] in 2019 and he had 1 additional hospitalization after that.? About 6 to 7 months ago he discontinued his medications and subsequently started drifting into worsening depression and having psychotic symptoms.? He really had no explanation for why he stopped going but once he stopped the medication he identified that he did get worse.? We identified that there have been no substantive changes in his life.? He still lives with his family, not using drugs and not doing well now off of the medication.? We discussed the risk benefits and alternatives of restarting the medication and he understood and agreed to proceed as documented in this note. Per his 02/23/[address] [facility] inpatient psychiatric evaluation: History of Present Illness Damián Parnell is a 19 year old male who presented to the ED with the following report: Chief Complaint: Psychiatric Symptoms Stated Complaint: homicidal thoughts Time Seen by Provider: 02/22/20 09:09 History of Present Illness:?? HPI Narrative: Patient is an 19-year-old male who comes to the ED with homicidal thoughts.? Patient currently lives with his father and stepmother.? He says that they do not get along well or always fighting.? For the past couple weeks he says he said thoughts of stabbing his father and stepmother with a knife.? He says the thoughts just been increasing and he would like to get help.? He endorses feeling depressed and not sleeping very well.? He also expresses having loss of interest in things.? Endorses having auditory hallucinations and also says he sees dark shadows that are not there.? Denies any thoughts of suicide.? Patient does see a psychiatrist and he says his next appointment is in March.? He is supposed to be on olanzapine but he has not been taking it due to cost. Associated symptoms: Reports auditory hallucinations, visual hallucinations, depression and homicidal ideation; Deny suicidal ideation. He was admitted to the neuropsychiatric unit for definitive treatment of those issues.? Damián presents today reporting that he is in the 12th grade at school.? He denies ever having any psychiatric inpatient services but has been in treatment at [facility] well time.? Records show treatment going back to 2007 with some reports of concerns for fine motor delay exceptor.? He reports his last appointment was in the spring of this year.? He denies cigarette, alcohol marijuana or any illicit drug use.? He does report vaping and denies ever going to rehab or having a DUI.? He denies any history of suicide attempts but reports that he started having thoughts to kill father and stepmother not looking to the hospital.? We reviewed his 10/02/2018 [facility] outpatient an excerpt is included below.? He endorses that is an accurate reflection of his psychiatric history. Psychiatric history: As above. Substance abuse history: As above. Family history: He reports his dad has schizophrenia there may be some addiction issues on dad side but denied any suicide attempts or completions that run in the family. Developmental history: He denies any issues with his or delivery.? He reports he learned to walk and talk and met his developmental milestones on time but reports were suggesting some possible delays.? And then he reports needing speech therapy, learning support, emotional support and special education classes. Psychosocial history: His parents were together when he was born but ultimately split up.? He is the only child from that union.? His mother has one other child and his father has 5 other children that would be his half siblings.? He reports that his childhood was pretty good until his parents and he got rougher then.? He denies any emotional, physical or sexual abuse.? He is currently in the 12th grade.? He reports that he is a heterosexual and has had 2 girlfriends.? He never been , he has never had children, he is never been in the and he endorses being a Sabianism.? His longest job he reports was at [employer] in [place] but he reports he quit her job because there was somebody that was making him really angry and was having thoughts to kill them.? He currently lives in a home with his stepmom and dad and a half brother. Legal history: He denies fci or legal peril. Medical history: Endorses only obesity. Per his 10/02/2018 [facility] outpatient evaluation: Time: In: 1000 ? Out: 1047 ? Settings: Office Patient Marital Status: Single Patient Sex: male Patient Race: Present Illness: Informants: Client was accompanied to this session by: father Gilberto Parnell. Referral Source: self Chief Complaint: Client reports: per intake form: I feel like my anger issues has got worse . History of Present Illness: Per client: It's hard for me to learn because I can't concentrate and stay on task. I stay to myself in school, until it is lunch time and then I hang out with my brother. We moved around a lot last year because of my dad's ex's and girlfriends. I went to three different schools. I've gotten in trouble for stealing, not listening to people. I got probation. It's hard to concentrate at school, staying on task and doing work. When there is something on the board, I'll get distracted and look the other way. I'm horrible with homework, if there is something I don't know then I ll ask dad and he doesn't know either. Or i'll get homework done and I'll forget it. It's hard to stay sitting at school. I'll just try to think about something else. It's hard to relax, it's almost like painful. I play with my hands all day. I've been working at [employer] for two months. I get nervous and then I get angry. When people walk around and say stuff, I think they're talking about me. It makes me frustrated. Then I'll just try to walk out but then it doesn't work. My anger issues have gotten worse from about a year ago. Dad's girlfriends I think made it get worse. I get nervous at work every time. I get nervous around others at work to. I worry about my boss firing me. I feel sad sometimes, like every other day, it doesn't last long though - like an hour. When someone is yelling at me I'll get mad. Then I'll try to hurt them. Like my brother and my step-brother, and his . I've thought about hitting people at work, I try to stop myself before I do it. I will usually just go somewhere else and stay to myself. If there is a lot of people, I don't like a lot of people. I get claustrophobia and feel like I m in a tight space. My step-brother is the one who makes me angry, he makes my day worse and worse. We get into arguments everyday. When I try to walk off he keeps coming up and bothering me still. Sometimes when people talk trash about my real brother I don't approve of it and I'll find them and tell them they better stop. I'll yell at them. Trauma/Abuse Reported:? Witness to Violence Details of Abuse/Trauma: with my dad when his schizophrenia kicks in Individual's Strengths/Skills:? Cooperative, Seeks Treatment, Motivated, Responds to Limits, Active Treatment History Treatment History: Psychiatric/Substance Abuse ? ? ? Treatment Service History ? Date of Service Type of Service Reason Name of Agency 2014 outpatient mental health? - med mgmt and therapy anger issues [facility] around 2016 inpatient anger issues [facility] ? Response to Past Treatment: Individual served reports the following regarding past treatment to be helpful/not helpful: not helpful at [facility] but sort of helpful with therapy . Addictive Behavior: Substance Abuse: ? Acknowledge ? Age Duration Frequency Acknowledge Drug History ? Use of Onset ?of Use ? of Use ? ? as Problem of Relapse Alcohol N ? Cannabis N ? Amphetamine N ? Prescription Medication N ? Nicotine N ? Gambling N ? Compulsive Spending N ? Other Drugs/ N ? Addictive Behaviors ? Client denies use of any substance. Consequences of Addictions:? Not Applicable Risk Assessment: Suicidal/Homicidal Risk:? Client Denies: suicidal thoughts/behave, suicidal intent, suicidal plan, homicidal thoughts/behave, homicidal intent, homicidal plan Individual Served/Guardian has been given information regarding the Crisis Hotline.? The Individual Served/Guardian has contracted to use Crisis Hotline services as needed and is aware it is available 24 hours a day, seven days a week.? Reports no SI/HI currently. Suicide Risk Assessment ? YES NO Sex (Male) x ? Age (16 or Older) x ? Depression of affective disorder ? x Previous suicide attempt or psychiatric care ? x Ethanol or drug abuse ? x Rational thinking loss (Psychosis) ? x Social support lacking ? x Organized plan or attempt ? x Negligent parenting, significant stressors, suicidal modeling ? ? by parents or siblings x ? School problems (Agressive behaviors or experiencing humiliation) x ? Total ( 1 point for each positive answer above) 4 ? Score Risk 0-2 ? Low Risk; No serious threat 3-6 ? Moderate Risk; Supervision at home/Psychiatric consult 7-10 ? High Risk; Supervision/Psychiatric consult/ Hospitalization Medical History: Primary Care Provider: None reported Last Physical Exam:? More than 1 year ago Current Medications: None reported Food/Drug Allergies: None reported Client's Medical History:? Surgical Procedure ( surgery on my neck from cat scratch fever ) Family History: Family Medical History:? Cancer (grandmother), Diabetes Family Psychiatric History:? Schizophrenia ( dad ) Substance Abuse within Family:? None Reported History of Suicide in Family:? No Pain Assessment Pain Present:? No Nutritional Status: Primary Indicator:? BMI Equal to 30 Nutritional Assessment:? External Referral Not Completed Food Related Behaviors:? Denies diagnosed eating disorder Attitudes Regarding Food: Client denies any concerns. My favorite food is [place] sandwiches. I don't like vegetables. Behaviors Regarding Food: We don't eat dinner as a family. We all seperate and go to our rooms. I usually eat whatever is made for dinner. Family's Observations: N/A Psychosocial History: Custody Status: Client's legal guardian is father Gilberto Parnell. Childhood/Family History: Individual Served reports pertinent childhood/family history to include per client: I was born in [place] and raised in [place]. My dad and mom raised me. They when I was 16. Mainly dad raises me. I see my mom on the weekends. I have four brothers. One is older and the others are younger. I'm close with my brothers. Developmental History: Client/Guardian report that the per father normal . Substance Use in :? Denied substance used while preg. Normative Development:? Milestones occur on time (per dad: I honestly don't remember ) Current Living Environment:? Parent/Immediate Family ( with dad, step-mom, step-mom's brother, and one brother ) Family Circumstances: Individual Served reports pertinent family circumstances including bereavement to include parents two years ago.? I'm really close with my dad and my brother, it's good. We moved a lot last year because of dad's ex's and girlfriends. I went to three different schools last year . Ability to Care for Self:? Reports being able to care for self Social/Peer Setting:? Family, Friends Christianity/Spiritual Pursuits:? Nonreligious/Secular Leisure/Recreational: I like to play on my phone. History:? Client denies? service Educational Status: Level of Completed Education:? Currently Attending School (11th grade at [employer]) Academic Performance:? Performance below grade level Extracurricular Activities:? None Behavioral Problems in School:? Present Attitude Toward Academics:? Neutral ( It's hard for me to learn ) Preferred Areas of Study:? Other: ( Ag ) Future Education:? Plan for future education ( I want to go to college, I want to be an automechanic ) Language(s) Spoken:? Andorran Vocational Status: Vocational Information:? Currently Employed ( [employer] ) Financial Information:? Dependence on Parents, Salary [facility] Assessment-Child Legal: Legal Status/History:? Current legal issues reported Legal Issues Reported:? Past Conviction ( for stealing, it will be on my record until I'm 19 ), Current Probation/[place] ( I can't remember the probation's name ) Affect on Treatment:? Legal issues will not affect treat Community Resources:? Family, Friends, Juvenile Services, [facility] Hospital Course Hospital Course He quickly acclimated to the individual, group and milieu therapies provided. But was having continued psychosis/hallucinations. Invega 6 mg p.o. daily was initiated and the Latuda was discontinued. He did have an episode where he had EPS with clenched jaw but he has been taking all 5 mg as needed multiple doses. He was also taking Latuda at the time. Latuda was then discontinued and we refrained from Haldol and the side effects resolved. He worked with the treatment team to talk to his family to be sure what the recommendations were for him to come home. He had marked improvement and was able to contract for safety outside of the hospital prior to discharge. During the hospitalization, patient had routine laboratory studies which were within normal limits except for few outliers. Additionally there was a general medical evaluation which was also within normal limits and revealed no new acute processes. Discharge Summary: At the time of discharge, lethality was denied and psychosis was resolving. Mood and anxiety were well managed. Patient endorsed a plan to avoid all drugs of abuse and follow-up with the aftercare recommendations of the treatment team. Patient was evaluated and deemed to be absent credible lethality, and had achieved the maximum benefit from an inpatient hospitalization, so was discharged. Involuntary Hold Information 96 Hour Hold: 96 Hour Involuntary Admission: Yes 96 Hour Hold Ending Date: 10/27/21 96 Hour Hold Ending Time: 18:30 Mental Status Exam MSE Comments: This is an obese white male with hospital scrubs on with improving grooming and eye contact. No abnormal movements. Cooperative with exam in no acute distress. Speech was more normal rate and volume. Mood described as good, affect brighter. Thought process organized. Thought content: Patient denied current suicidal or homicidal ideation, there were no delusions reported or noted, he endorsed reduction in his auditory and visual hallucinations that were troubling. Attention and concentration appeared intact and memory was mostly reliable but none were formally tested. He is alert and oriented x3. Insight and judgment are limited and impulse control is limited. Discharge Data Studies Completed and Pending: Laboratory Results WBC 8.0 10^3/uL (4.5- 13.0) 10/23/21 15:33 RBC 5.68 10^6/uL (4.1 -5.3) H 10/23/21 15:33 Hgb 16.0 g/dL (11.7-1 6.6) 10/23/21 15: Hct 49.0 % (42.0-52.0 ) 10/23/21 15: MCV 86.3 fl (80-94) 10/23/21 15: MCH 28.2 pg (28.0-34. 0) 10/23/21 15: MCHC 32.7 g/dL (30.0-3 6.0) 10/23/21 15:33 RDW 12.3 % (12.1-15.1 ) 10/23/21 15:33 Plt Count 266 10^3/cmm (130 -400) 10/23/21 15:33 MPV 11.4 fL (7.4-10.4 ) H 10/23/21 15:33 Neut % (Auto) 65.3 % 10/23/21 15:33 Lymph % (Auto) 23.8 % 10/23/21 15:33 Assumption % (Auto) 6.9 % 10/23/21 15:33 Eos % (Auto) 2.4 % 10/23/21 15:33 Baso % (Auto) 1.3 % 10/23/21 15:33 Neut # (Auto) 5.20 10^3/uL (1.8 -8.0) 10/23/21 15:33 Lymph # (Auto) 1.9 10^3/uL (1.5- 6.5) 10/23/21 15:33 Assumption # (Auto) 0.6 10^3/uL (0.2- 0.9) 10/23/21 15:33 Eos # (Auto) 0.2 10^3/uL (0.0- 0.8) 10/23/21 15:33 Baso # (Auto) 0.1 10^3/uL (0.0- 0.1) 10/23/21 15:33 Nucleated RBC % (a uto) 0 % 10/23/21 15:33 Nucleated RBCs # 0.0 /100WBC 10/23/21 15:33 Sodium 141 mmol/L (136-1 45) 10/23/21 15:33 Potassium 3.9 mmol/L (3.5-5 .1) 10/23/21 15:33 Chloride 103 mmol/L (98-10 7) 10/23/21 15:33 Carbon Dioxide 26 mmol/L (22-29) 10/23/21 15:33 Anion Gap 15.9 (5-19) 10/23/21 15:33 BUN 11 mg/dL (6-20) 10/23/21 15:33 Creatinine 0.8 mg/dL (0.7-1. 2) 10/23/21 15:33 GFR Calculation 123.2 mL/min (90- 130) 10/23/21 15:33 Glucose 87 mg/dL (65-115) 10/23/21 15:33 Calculated Osmolal ity 291 mOsm/kg (285- 295) 10/23/21 15:33 Calcium 10.3 mg/dL (8.5-1 0.5) 10/23/21 15:33 Total Bilirubin 0.5 mg/dL (0.15-1 .2) 10/23/21 15:33 AST 23 U/L (0-40) 10/23/21 15:33 ALT 35 U/L (0-41) 10/23/21 15:33 Alkaline Phosphata se 66 U/L (40-130) 10/23/21 15:33 Total Protein 8.1 g/dL (6.6-8.7 ) 10/23/21 15:33 Albumin 5.0 g/dL (3.5-5.2 ) 10/23/21 15:33 Globulin 3.1 g/dL (1.3-4.6 ) 10/23/21 15:33 Salicylates < 0.3 mg/dL (3-10 ) L 10/23/21 15:33 Acetaminophen < 5.0 ug/mL (10-3 0) L 10/23/21 15:33 Vitals: Last Vital Signs Temp 97.9 F 10/27/21 10:33 Pulse 104 H 10/27/21 10:33 Resp 18 10/27/21 10:33 BP 149/100 10/27/21 10:33 Pulse Ox 98 10/27/21 10:33 O2 Del Method 10/27/21 06:00 Discharge Plan Discharge Patient Disposition: Home Condition: Stable Prescriptions: New paliperidone 6 mg Tablet Extended Release 24hr 6 mg PO DAILY 30 Days Qty: 30 1RF benztropine 1 mg Tablet 1 mg PO BID PRN (Reason: Mild Extrapyramidal symptoms) 30 Days Qty: 60 1RF Continued meloxicam 15 mg tablet 15 mg PO DAILY 30 Days Qty: 30 1RF citalopram 20 mg tablet 20 mg PO DAILY 30 Days Qty: 30 1RF lisinopril 10 mg tablet 10 mg PO DAILY 30 Days Qty: 30 0RF omeprazole 20 mg capsule,delayed release(DR/EC) 20 mg PO DAILY 30 Days Qty: 30 1RF Discontinued Latuda 20 mg tablet 20 mg PO BEDTIME prazosin 2 mg Capsule 2 mg PO QPM Discharge Orders: Discharge Order (Routine); Ordered 10/27/21 Ordered By: Heber Ace Referrals: [facility] [Outside] Gildardo Cohn MD [Primary Care Provider] - Discharge Diet: Regular Discharge Activity: Resume usual activity Patient Instructions: Paliperidone (By mouth) (Invega), Opioid Safety Discharge Attestations NPU Time Spent in Discharge Care*: less than 30 min Specific Discharge Activities: Specific discharge activities: educating patient, discussing with caser up/social workers/dc planners, documenting/other paperwork and evaluating patient/reviewing data Status at Discharge: Cognitive status at discharge: cognitively intact, Behavioral status at discharge: cooperative, Coding Level of Care Code Acute Chg FW DC note Diagnoses Acute psychosis F23 Suicidal ideation R45.851 Homicidal ideation R45.850 Schizoaffective disorder F25.9 Morbid obesity with BMI of 40.0-44.9, adult E66.01; Z68.41 Parent-child relational problem Z62.820
== END 2021-10-27 16:32 | disposition home or self-care (01) | DRG 885 ==
LOC: ER 16:11 → NP 17:30
PROVIDERS: Admitting Provider Psychiatry & Neurology Psychiatry; Emergency Provider Family Medicine; PCP Family Medicine Adult Medicine; Visit Provider Psychiatry & Neurology Psychiatry
DX: F25.1 Schizoaffective disorder, depressive type (principal); R45.851 Suicidal ideations; Z68.41 Body mass index [BMI] 40.0-44.9, adult; Z81.8 Family history of other mental and behavioral disorders; I10 Essential (primary) hypertension; R45.850 Homicidal ideations; Z63.9 Problem related to primary support group, unspecified; Z62.820 Parent-biological child conflict; F90.9 Attention-deficit hyperactivity disorder, unspecified type; E66.01 Morbid (severe) obesity due to excess calories
CPT/HCPCS: 80053; 80307; 85025; 97150; 97165; 99285; Q0163

== ENCOUNTER → 2021-12-19 12:34 | Outpatient (BNVA) | payer OTHER, SELFPAY | PROVIDERS: PCP Family Medicine Adult Medicine; Visit Provider Psychiatry & Neurology Psychiatry | DX: F25.1 Schizoaffective disorder, depressive type (principal); Z79.899 Other long term (current) drug therapy | CPT/HCPCS: 80061; 83036 ==

== ENCOUNTER 2021-12-30 21:31 | Emergency (ER) | payer MEDICAID, SELFPAY ==
[2021-12-26 14:56] VITALS: BP 123/80; BMI 42.9
[2021-12-30 22:05] VITALS: BP 137/72; PULSE 133; RESP 16; TEMP 36.7; O2SAT 96; BMI 42.1
[2021-12-30 22:41] LABS: Add Urine Microscopic? YES; Bilirubin Urine Neg (Negative); Blood Urine 3+ (Negative); Glucose Urine UA Norm (Normal); Ketones Urine Negative (Negative); Leukocyte Esterase Urine 2+ (Negative); Nitrate Urine Positive (Negative); Protein Urine 2+ (Negative); Specific Gravity, Urine 1.015 (1.005-1.030); Urine Appearance Cloudy (CLEAR); Urine Color Yellow (Yellow); Urobilinogen Urine Neg (Negative); pH Urine 6 (5-7)
[2021-12-30 22:44] LABS: Add Urine Culture? Yes; Bacteria Urine TRACE /hpf; RBC Urine TOO NUMEROUS TO CNT /hpf (0-2); Squamous Epithelial Cell Urine 0-4 /hpf (0-5); WBC Urine 15-25 /hpf (0-5)
--- NOTE | 2021-12-31 00:17 | ED_ITS ---
HPI - Male Genitourinary General: Chief complaint: Urogenital-Male Stated complaint: Hurts to pee Time Seen by Provider: 12/31/21 00:15 History of Present Illness: Patient is a 21-year-old male that comes to the ED with dysuria. Symptoms started a couple hours prior to arrival. He endorses having a burning pain when he urinates. He says his urine has been clear today. Denies any fevers, nausea/vomiting, abdominal pain, back pain or flank pain. Associated symptoms: Reports dysuria; Deny hematuria, nausea or vomiting Review of Systems Const: Denies: fever(s), chills or fatigue Eyes: Denies: change in vision or eye discomfort ENMT: Denies: throat pain, odynophagia, nasal discharge or nasal congestion Card: Denies: chest pain, palpitations, edema, swelling of feet/ankles, dyspnea on exertion or orthopnea Resp: Denies: dyspnea, productive cough or non-productive cough GI: Denies: abdominal pain, nausea, vomiting, diarrhea, constipation or hematochezia : Reports: dysuria; Denies: flank pain, difficulty urinating or hematuria Musc: Denies: neck pain, back pain or extremity swelling Skin/Breast: Denies: rash or new lesions Neuro: Denies: headache(s), numbness in extremities or weakness in extremities PFS ED PFSH: Medical History Condyloma acuminatum due to human papillomavirus Hypertension Morbid obesity with BMI of 40.0-44.9, adult Psychiatric care Schizoaffective disorder Surgical History No pertinent past surgical history Family History Grandmother Diabetes Mother Hypertension Other MDD (major depressive disorder), single episode, severe with psychotic features Social History Smoking and tobacco status: current every day smoker cigarettes [ Other cigarette details: 1 Pack per 7 day], e-cigarettes E-Cigarette Details: vaporizer device E-cig/vape details: 0.6% only vape every 2 days and smokeless tobacco Smokeless tobacco user: chewing tobacco Smokeless tobacco details: 1 can every month Quit status (tobacco): has quit using tobacco Year quit tobacco: 10/22 for 8 months Second hand smoke exposure: Yes Alcohol intake: never Lives independently: Yes Household members: other Details: grandma Housing: Apartment Marital status: Single Highest education level completed: High School Graduate Current occupational status: unemployed Current occupational exposures/hazards: No Pets and animals: Yes Pets & animals: cat(s) History of recent travel: No Leisure activites: other Leisure activities details: video games, sleep Sexually active: No Current gender identity: Male Kat/Methodist: None Special kat needs: No Agree to transfusion: Yes Financial difficulty paying for basics: Not Very Hard Physical Exam Const: COMMON NORMALS: no acute distress, patient oriented x3, healthy appearing and alert GENERAL APPEARANCE: cooperative and comfortable HENMT: COMMON NORMALS: normocephalic HEAD & SCALP: normocephalic MOUTH: Normal oral and palatal mucosa present THROAT: posterior oropharynx normal and uvula midline Neck/C-Spine: COMMON NORMALS: supple GENERAL: Yes normal visual inspection Resp: COMMON NORMALS: normal respiratory effort, No retractions, No use of accessory muscles and clear to auscultation bilaterally AUSCULTATION: clear to auscultation bilaterally Cardio: COMMON NORMALS: regular rate, regular rhythm, S1 normal heart sound present, S2 normal heart sound present, No gallops present (Cardio), No clicks present (Cardio), No murmurs present (Cardio) and Peripheral pulses 2+ throughout RATE: regular rate RHYTHM: regular rhythm HEART SOUNDS: S1 normal heart sound present and S2 normal heart sound present PERIPHERAL PULSES: Peripheral pulses 2+ throughout GI: COMMON NORMALS: Normal to inspection, nondistended, normoactive bowel sounds present, Soft to palpation, non-tender and no masses PALPATION: Yes Soft to palpation : COMMON NORMALS: Yes no CVA tenderness BLADDER/KIDNEY EXAM: Yes no CVA tenderness Back/Pelvis: COMMON NORMALS: no CVA tenderness Extremity: COMMON NORMALS: normal to inspection Neuro: COMMON NORMALS: patient oriented x3 SENSORIUM/ORIENTATION: Yes alert GAIT: Yes Normal gait present Skin: GENERAL SKIN EXAM: dry skin Course Vital Signs: Vital signs: Vital Signs Temperature 98.1 F 12/30/21 22:05 Pulse Rate 133 H 12/30/21 22:05 Respiratory Rate 15 12/31/21 00:38 Blood Pressure 137/72 12/30/21 22:05 Pulse Oximetry 96 12/30/21 22:05 Oxygen Delivery Me thod 12/30/21 22:05 MDM - Male Medical Decision Making Patient is a 21-year-old male comes to the ED with pain when urinating. Symptoms started today. Denies any fevers, hematuria, nausea/vomiting, back pain, flank pain or abdominal pain. Vitals are stable. Exam of patient is benign and he appears nontoxic in no acute distress or pain. UA shows signs of a UTI. Patient was given a dose of cefdinir here in the ED. He is diagnosed with UTI and discharged home with a prescription for cefdinir. Told to follow- up with his PCP within the next week for reevaluation return to ED precautions given. Patient understood and agreed with plan. Lab Data I reviewed the patient's lab results. Laboratory Results Urine Color Yellow (Yellow) 12/30/21 22: Urine Appearance Cloudy (CLEAR) A 12/30/21 22: Urine pH 6 (5-7) 12/30/21 22:05 Ur Specific [place] 1.015 (1.005-1.030) 12/30/21 22:05 Urine Protein 2+ (Negative) H 12/30/21 22:05 Urine Glucose (UA) Norm (Normal) 12/30/21 22: Urine Ketones Negative (Negative) 12/30/21 22: Urine Blood 3+ (Negative) H 12/30/21 22:05 Urine Nitrate Positive (Negative) H 12/30/21 22:05 Urine Bilirubin Neg (Negative) 12/30/21 22: Urine Urobilinogen Neg mg/dL (Negative) 12/30/21 22:05 Ur Leukocyte Esterase 2+ (Negative) H 12/30/21 22:05 Urine RBC Too numerous to cnt /hpf (0-2) H 12/30/21 22:05 Urine WBC 15-25 /hpf (0-5) H 12/30/21 22:05 Ur Squamous Epith Cells 0-4 /hpf (0-5) H 12/30/21 22:05 Amorphous Sediment Not Reportable 12/30/21 22: Urine Bacteria Trace /hpf (NONE) 12/30/21 22:05 Discharge Plan Discharge Patient Disposition: Home Clinical Impression: UTI (urinary tract infection) Qualifiers: Urinary tract infection type: acute cystitis Hematuria presence: with hematuria Qualified Code(s): N30.01 - Acute cystitis with hematuria Condition: Stable Prescriptions: New cefdinir 300 mg capsule 300 mg PO BID 10 Days Qty: 20 0RF No Action lisinopril 10 mg tablet 10 mg PO DAILY meloxicam 15 mg tablet 15 mg PO DAILY PRN paliperidone 9 mg tablet extended release 24hr 9 mg PO .q hs Qty: 30 1RF Rx Instructions: Take one tablet daily at bedtime at 8 PM; stop quetiapine prazosin 1 mg capsule 2 mg PO .q hs Qty: 60 1RF Rx Instructions: Take two capsules daily at bedtime; hold for low blood pressure sertraline 100 mg tablet 200 mg PO .q am Qty: 60 1RF Rx Instructions: For 4 days:Take one and one-half tablets every morning, then two tablets every morning benztropine 1 mg tablet 1 mg PO BID PRN (Reason: Mild Extrapyramidal symptoms) 30 Days Qty: 60 1RF omeprazole 20 mg capsule,delayed release(DR/EC) 20 mg PO DAILY 30 Days Qty: 30 1RF Discharge Orders: Discharge ED (Routine); Ordered 12/31/21 Ordered By: Fransisco Hernandes Referrals: Gildardo Cohn MD [Primary Care Provider] - Discharge Diet: Regular Discharge Activity: Resume usual activity Patient Instructions: Urinary Tract Infection in Men (DC) Activity Restrictions/Additional Instructions: Follow-up with medical provider as directed in the next 7 to 10 days for reevaluation. Take medications as prescribed. Drink plenty of fluids and stay hydrated. Return to the ER or your medical provider if condition worsens. Please read and understand discharge instructions. Thank you for choosing [facility] for your healthcare needs today. Please realize this is an emergency room and that we are providing you with a medical screening exam and this may not be complete and all inclusive of all the testing and or work up that you may need to determine your ailment or severity of your illness. It is very important that you follow up as instructed or that you return to the Emergency Department should you have concerns or if your condition changes or worsens in any way. Coding Level of Care Code ED Support Clerk for Dae Garcia Exam Comprehensive
[2021-12-31] MEDS: cefdinir 300 MG CAPSULE PO (00:34)
[2021-12-31 00:38] VITALS: RESP 15
== END 2021-12-31 00:39 | disposition home or self-care (01) ==
PROVIDERS: Emergency Provider Physician Assistant; PCP Family Medicine Adult Medicine
DX: N30.01 Acute cystitis with hematuria (principal); I10 Essential (primary) hypertension; F17.210 Nicotine dependence, cigarettes, uncomplicated
CPT/HCPCS: 81001; 87077; 87086; 87186; 99283

== ENCOUNTER 2022-01-01 18:44 | Emergency (ER) | payer MEDICAID, SELFPAY ==
[2021-12-26 14:56] VITALS: BP 123/80; BMI 42.9
[2022-01-01 19:59] VITALS: BP 160/80; PULSE 152; RESP 20; TEMP 38.4; O2SAT 96
--- NOTE | 2022-01-01 20:05 | XRR_ITS ---
PROCEDURE INFORMATION: Exam: XR Chest Exam date and time: 01/01/2022 8:26 PM Age: 21 years old Clinical indication: Fever TECHNIQUE: Imaging protocol: Radiologic exam of the chest. Views: 1 view. COMPARISON: CR XR chest 1V portable [id number] 01/09/2021 5:02 PM FINDINGS: Lungs: Lungs are clear bilaterally. Pleural spaces: No pleural effusion. No pneumothorax. Heart/Mediastinum: The cardiac silhouette and mediastinal contours are unremarkable. Bones/joints: Unremarkable for age. XR/XR chest 1V portable [id number] IMPRESSION: Negative chest radiograph.
--- NOTE | 2022-01-01 20:06 | CTR_ITS ---
PROCEDURE INFORMATION: Exam: CT Abdomen And Pelvis Without Contrast Exam date and time: 01/01/2022 8:28 PM Age: 21 years old Clinical indication: Patient HX: Fever with hematuria. ; Additional info: Hematuria, fever TECHNIQUE: Imaging protocol: Computed tomography of the abdomen and pelvis without contrast. Sagittal and coronal reformatted images were created and reviewed. Radiation optimization: All CT scans at this facility use at least one of these dose optimization techniques: automated exposure control; mA and/or kV adjustment per patient size (includes targeted exams where dose is matched to clinical indication); or iterative reconstruction. COMPARISON: CR XR acute abdomen series [id number] 04/12/2016 7:56 AM RADIATION DOSE METRICS: Total DLP (mGy-cm): 1406.83 FINDINGS: Limitations: Evaluation of solid organs and vasculature is limited without intravenous contrast. This is standard protocol for evaluation of possible urolithiasis. Lungs: Visualized lungs are clear. Pleural spaces: No pleural effusion. Heart: Visualized portions of the heart are unremarkable. Liver: The liver is unremarkable. Gallbladder and bile ducts: The gallbladder is contracted. This may be due to a postprandial state. No pericholecystic fluid. No biliary ductal dilatation. Pancreas: The pancreas is unremarkable. No pancreatic ductal dilatation. Spleen: Multiple calcified granulomas in the spleen. Adrenal glands: The right and left adrenal glands are unremarkable. Kidneys and ureters: The right and left kidneys are unremarkable. The right and left ureters are unremarkable. Stomach and bowel: Ingested contents in the stomach. Appendix: The appendix is visualized and is unremarkable. No findings to suggest acute appendicitis. Intraperitoneal space: No free intraperitoneal air. No ascites. No loculated fluid collections to suggest an abscess. Vasculature: No evidence for aortic aneurysm. Lymph nodes: No lymphadenopathy. Urinary bladder: Diffuse, mild wall thickening of the bladder and mild inflammation around the bladder. Reproductive: Nonspecific parenchymal calcifications in the prostate gland. Bones/joints: No acute fracture. Soft tissues: The extra-abdominal soft tissues are unremarkable. CT/CT kidney stone [id number] IMPRESSION: Diffuse, mild wall thickening of the bladder and mild inflammation around the bladder. Findings raise suspicion for cystitis. Recommend correlation with laboratory findings.
--- NOTE | 2022-01-01 20:11 | W.ED.FEVER ---
HPI - Fever General: Chief Complaint: Fever Stated Complaint: fever, chills Time Seen by Provider: 01/01/22 20:05 History of Present Illness: 21-year-old male patient comes in today for concerns of fever and lightheadedness. Patient was diagnosed with a urinary tract yesterday. Review of the record noted a urinalysis with large amount of red blood cells and a positive nitrates. Patient reports no difficulty of urination or pain with urination at this time. Patient is taking antibiotics that was prescribed yesterday. Patient appears nontoxic. Patient denies any pain. Patient is alert and oriented. Associated symptoms: Reports nausea; Deny chest pain Review of Systems Const: Reports: fever(s) ENMT: Denies: throat pain Card: Denies: chest pain Resp: Denies: dyspnea or productive cough GI: Reports: nausea : Denies: difficulty urinating Neuro: Reports: other (Lightheaded) [facility] ED PFSH: Medical History Condyloma acuminatum due to human papillomavirus Hypertension Morbid obesity with BMI of 40.0-44.9, adult Psychiatric care Schizoaffective disorder Surgical History No pertinent past surgical history Family History Grandmother Diabetes Mother Hypertension Other MDD (major depressive disorder), single episode, severe with psychotic features Social History Smoking and tobacco status: current every day smoker cigarettes [ Other cigarette details: 1 Pack per 7 day], e-cigarettes E-Cigarette Details: vaporizer device E-cig/vape details: 0.6% only vape every 2 days and smokeless tobacco Smokeless tobacco user: chewing tobacco Smokeless tobacco details: 1 can every month Quit status (tobacco): has quit using tobacco Year quit tobacco: 10/22 for 8 months Second hand smoke exposure: Yes Alcohol intake: never Lives independently: Yes Household members: other Details: grandma Housing: Apartment Marital status: Single Highest education level completed: High School Graduate Current occupational status: unemployed Current occupational exposures/hazards: No Pets and animals: Yes Pets & animals: cat(s) History of recent travel: No Leisure activites: other Leisure activities details: video games, sleep Sexually active: No Current gender identity: Male Kat/Sabianism: None Special kat needs: No Agree to transfusion: Yes Financial difficulty paying for basics: Not Very Hard Physical Exam Const: COMMON NORMALS: alert HENMT: COMMON NORMALS: normocephalic HEAD & SCALP: normocephalic Neck/C-Spine: COMMON NORMALS: full ROM Resp: COMMON NORMALS: normal respiratory effort and clear to auscultation bilaterally AUSCULTATION: clear to auscultation bilaterally Cardio: COMMON NORMALS: regular rhythm RATE: tachycardic RHYTHM: regular rhythm GI: COMMON NORMALS: Soft to palpation and non-tender PALPATION: Yes Soft to palpation : COMMON NORMALS: Yes no CVA tenderness BLADDER/KIDNEY EXAM: Yes no CVA tenderness Back/Pelvis: COMMON NORMALS: no CVA tenderness Extremity: COMMON NORMALS: full ROM Neuro: SENSORIUM/ORIENTATION: Yes alert Skin: COMMON NORMALS: turgor normal GENERAL SKIN EXAM: turgor normal Course Vital Signs: Vital signs: Vital Signs Temperature 102.5 F H 01/01/22 21:42 Pulse Rate 128 H 01/01/22 22:06 Respiratory Rate 17 01/01/22 22:06 Blood Pressure 123/54 01/01/22 22:06 Pulse Oximetry 93 01/01/22 22:06 Oxygen Delivery Me thod 01/01/22 22:06 MDM - Fever Medical Decision Making Patient comes in today for complaints of fever and fatigue after being diagnosed with urinary tract infection yesterday. On exam patient appears nontoxic. Respirations are even lungs are clear to auscultation. Heart rates tachycardic in the 130s. Differential diagnosis includes but not limited to sepsis, dehydration, renal calculi with infection. Patient had a white blood cell count of 17,000, urine was improved from yesterday, CMP was unremarkable, lactate was 1.6, CT scan noted cystitis without any signs of appendicitis or obstructive uropathy. Patient was given 1 to 2 L of IV fluids and 1 g of Rocephin. Blood cultures were sent. Patient had improvement in symptoms and felt well to go home. Temperature came down from 102.5-99 5. Recommended follow-up with primary care in 2 to 3 days return to the ER for inability to hold fluids down, or new concerns. Lab Data : 01/01/22 20:05 01/01/22 20:05 Radiology Impressions Chest X-Ray 01/01/22 20:05 IMPRESSION: Negative chest radiograph. Abdomen/Pelvis CT 01/01/22 20:06 IMPRESSION: Diffuse, mild wall thickening of the bladder and mild inflammation around the bladder. Findings raise suspicion for cystitis. Recommend correlation with laboratory findings. Laboratory Results WBC 17.5 10^3/uL (4.5-13.0) H 01/01/22 20:05 RBC 4.80 10^6/uL (4.1-5.3) 01/01/22 20:05 Hgb 14.1 g/dL (11.7-16.6) 01/01/22 20:05 Hct 40.8 % (42.0-52.0) L 01/01/22 20:05 MCV 85.0 fl (80-94) 01/01/22 20:05 MCH 29.4 pg (28.0-34.0) 01/01/22 20:05 MCHC 34.6 g/dL (30.0-36.0) 01/01/22 20:05 RDW 12.7 % (12.1-15.1) 01/01/22 20:05 Plt Count 249 10^3/cmm (130-400) 01/01/22 20:05 MPV 10.6 fL (7.4-10.4) H 01/01/22 20:05 Neut % (Auto) 83.7 % 01/01/22 20:05 Lymph % (Auto) 7.1 % 01/01/22 20:05 [place] % (Auto) 7.1 % 01/01/22 20:05 Eos % (Auto) 0.3 % 01/01/22 20:05 Baso % (Auto) 0.5 % 01/01/22 20:05 Neut # (Auto) 14.64 10^3/uL (1.8-8.0) H 01/01/22 20:05 Lymph # (Auto) 1.2 10^3/uL (1.5-6.5) L 01/01/22 20:05 [place] # (Auto) 1.2 10^3/uL (0.2-0.9) H 01/01/22 20:05 Eos # (Auto) 0.1 10^3/uL (0.0-0.8) 01/01/22 20:05 Baso # (Auto) 0.1 10^3/uL (0.0-0.1) 01/01/22 20:05 Nucleated RBC % (auto) 0 % 01/01/22 20:05 Nucleated RBCs # 0.0 /100WBC 01/01/22 20:05 Sodium 133 mmol/L (136-145) L 01/01/22 20:05 Potassium 4.1 mmol/L (3.5-5.1) 01/01/22 20:05 Chloride 100 mmol/L (98-107) 01/01/22 20:05 Carbon Dioxide 21 mmol/L (22-29) L 01/01/22 20:05 Anion Gap 16.1 (5-19) 01/01/22 20:05 BUN 14 mg/dL (6-20) 01/01/22 20:05 Creatinine 0.9 mg/dL (0.7-1.2) 01/01/22 20:05 GFR Calculation 107.6 mL/min (90-130) 01/01/22 20:05 Glucose 112 mg/dL (65-115) 01/01/22 20:05 Calculated Osmolality 277 mOsm/kg (285-295) L 01/01/22 20:05 Lactate 1.6 mmol/L (0.5-2.2) 01/01/22 20:05 Calcium 9.2 mg/dL (8.5-10.5) 01/01/22 20:05 Total Bilirubin 0.5 mg/dL (0.15-1.2) 01/01/22 20:05 AST 14 U/L (0-40) 01/01/22 20:05 ALT 21 U/L (0-41) 01/01/22 20:05 Alkaline Phosphatase 67 U/L (40-130) 01/01/22 20:05 Total Protein 7.5 g/dL (6.6-8.7) 01/01/22 20:05 Albumin 4.4 g/dL (3.5-5.2) 01/01/22 20:05 Globulin 3.1 g/dL (1.3-4.6) 01/01/22 20:05 Urine Color Yellow (Yellow) 01/01/22 21:30 Urine Appearance Clear (CLEAR) 01/01/22 21:30 Urine pH 7 (5-7) 01/01/22 21:30 Ur Specific [place] 1.010 (1.005-1.030) 01/01/22 21:30 Urine Protein Neg (Negative) 01/01/22 21:30 Urine Glucose (UA) Norm (Normal) 01/01/22 21:30 Urine Ketones Negative (Negative) 01/01/22 21:30 Urine Blood Neg (Negative) 01/01/22 21:30 Urine Nitrate Negative (Negative) 01/01/22 21:30 Urine Bilirubin Neg (Negative) 01/01/22 21:30 Urine Urobilinogen Norm mg/dL (Negative) 01/01/22 21:30 Ur Leukocyte Esterase Negative (Negative) 01/01/22 21:30 EKG Data EKG 1: EKG interpretation date: 01/01/22 EKG interpretation time: 21:00 Prior EKG tracings: not available for review Interpretation: EKG shows a sinus tachycardia with a regular rate at [address] elevation or ectopy is noted. No prior exam was available for comparison. Discharge Plan Discharge Patient Disposition: Home Clinical Impression: Acute cystitis with hematuria Condition: Stable Prescriptions: No Action lisinopril 10 mg tablet 10 mg PO DAILY meloxicam 15 mg tablet 15 mg PO DAILY PRN paliperidone 9 mg tablet extended release 24hr 9 mg PO .q hs Qty: 30 1RF Rx Instructions: Take one tablet daily at bedtime at 8 PM; stop quetiapine prazosin 1 mg capsule 2 mg PO .q hs Qty: 60 1RF Rx Instructions: Take two capsules daily at bedtime; hold for low blood pressure sertraline 100 mg tablet 200 mg PO .q am Qty: 60 1RF Rx Instructions: For 4 days:Take one and one-half tablets every morning, then two tablets every morning benztropine 1 mg tablet 1 mg PO BID PRN (Reason: Mild Extrapyramidal symptoms) 30 Days Qty: 60 1RF omeprazole 20 mg capsule,delayed release(DR/EC) 20 mg PO DAILY 30 Days Qty: 30 1RF cefdinir 300 mg capsule 300 mg PO BID 10 Days Qty: 20 0RF Discharge Orders: Discharge ED (Routine); Ordered 01/01/22 Ordered By: Paul Merchant Referrals: Olya Brandt FNP [Primary Care Provider] - Discharge Diet: Usual diet Discharge Activity: Increase activity as tolerated Patient Instructions: Urinary Tract Infection in Men (ED) Activity Restrictions/Additional Instructions: Drink plenty of water and fluids. Continue with antibiotics as directed until complete. Follow-up with primary care in 3 days for recheck. Return to ED for new concerns or worsening symptoms such as inability to hold fluids down, or inability to urinate. Coding Level of Care Code ED Community Resource Consultant for Chg Fwd Exam Comprehensive
--- NOTE | 2022-01-01 20:14 | ECG_ITS ---
[facility] Test Date: 2022-01-01 Pat Name: Damián Parnell Department: Room: Gender: Male Bell Captain: : 2000 Requested By: Paul Longo Order Number: [id number] Jose G MD: Darrel Light M.D. Measurements Intervals [place] Rate: 125 P: 63 RI: 131 QRS: 55 QRSD: 81 T: -3 QT: 290 QTc: 419 Interpretive Statements SINUS TACHYCARDIA NONSPECIFIC T-WAVE ABNORMALITY ABNORMAL RHYTHM ECG Compared to ECG 01/01/2022 20:50:48 No significant changes Electronically Signed On 01-02-2022 21:42:01 CDT by Darrel Light M.D. [email or web address]
[2022-01-01] MEDS: sodium chloride 0.9% 1,000 ML 999 ML IV ×2 (20:21→21:34)
[2022-01-01 20:25] LABS: Basophils # 0.1 10^3/uL (0.0-0.1); Basophils % 0.5 %; Eosinophils # 0.1 10^3/uL (0.0-0.8); Eosinophils % 0.3 %; Hematocrit 40.8 % (42.0-52.0); Hemoglobin 14.1 g/dL (11.7-16.6); Lymphocytes # 1.2 10^3/uL (1.5-6.5); Lymphocytes % 7.1 %; Mean Corpuscular HGB Conc 34.6 g/dL (30.0-36.0); Mean Corpuscular Hemoglobin 29.4 pg (28.0-34.0); Mean Platelet Volume 10.6 fL (7.4-10.4); Monocytes # 1.2 10^3/uL (0.2-0.9); Monocytes % 7.1 %; Neutrophils # 14.64 10^3/uL (1.8-8.0); Neutrophils % 83.7 %; Nucleated Red Blood Cells % 0 %; Platelet Count 249 10^3/cmm (130-400); Red Cell Distribution Width 12.7 % (12.1-15.1); White Blood Count 17.5 10^3/uL (4.5-13.0)
[2022-01-01] MEDS: acetaminophen 500 mg Tablet 1000 MG PO (20:51)
[2022-01-01 20:57] VITALS: BP 144/85; PULSE 136; RESP 17; O2SAT 95
[2022-01-01 21:01] VITALS: BP 149/75; PULSE 135; RESP 18; TEMP 39.2; O2SAT 94
[2022-01-01 21:21] LABS: Alanine Aminotransferase 21 U/L (0-41); Albumin Level 4.4 g/dL (3.5-5.2); Alkaline Phosphatase 67 U/L (40-130); Anion Gap 16.1 (5-19); Aspartate Amino Transferase 14 U/L (0-40); Blood Urea Nitrogen 14 mg/dL (6-20); Calcium 9.2 mg/dL (8.5-10.5); Carbon Dioxide 21 mmol/L (22-29); Chloride 100 mmol/L (98-107); Globulin 3.1 g/dL (1.3-4.6); Glomerular Filtration Rate 107.6 mL/min (90-130); Glucose 112 mg/dL (65-115); Osmolality Calculated 277 mOsm/kg (285-295); Potassium 4.1 mmol/L (3.5-5.1); Sodium 133 mmol/L (136-145); Total Bilirubin 0.5 mg/dL (0.15-1.2); Total Protein 7.5 g/dL (6.6-8.7)
[2022-01-01 21:22] LABS: Lactate (Lactic Acid level) 1.6 mmol/L (0.5-2.2)
[2022-01-01] MEDS: cefTRIAXone 1,000 MG in sodium chloride 0.9% (plus) 50 ML 100 MG IV (21:37)
[2022-01-01 21:42] VITALS: BP 149/75; PULSE 134; RESP 18; TEMP 39.2; O2SAT 94
[2022-01-01 21:50] LABS: Add Urine Microscopic? NO; Charge for UA Resulting for Rev
[2022-01-01 21:57] LABS: Bilirubin Urine Neg (Negative); Blood Urine Neg (Negative); Glucose Urine UA Norm (Normal); Ketones Urine Negative (Negative); Leukocyte Esterase Urine Negative (Negative); Nitrate Urine Negative (Negative); Protein Urine Neg (Negative); Urine Appearance Clear (CLEAR); Urine Color Yellow (Yellow); Urobilinogen Urine Norm (Negative); pH Urine 7 (5-7)
[2022-01-01] MEDS: ibuprofen 600 mg Tablet PO (22:03)
[2022-01-01 22:06] VITALS: BP 123/54; PULSE 128; RESP 17; O2SAT 93
[2022-01-01 22:46] VITALS: BP 111/62; PULSE 123; RESP 18; TEMP 37.5; O2SAT 95
== END 2022-01-01 22:48 | disposition home or self-care (01) ==
PROVIDERS: Emergency Medicine; Emergency Provider Nurse Practitioner Family; PCP Nurse Practitioner Family
DX: N30.01 Acute cystitis with hematuria (principal); I10 Essential (primary) hypertension; F17.210 Nicotine dependence, cigarettes, uncomplicated; F17.220 Nicotine dependence, chewing tobacco, uncomplicated; F17.290 Nicotine dependence, other tobacco product, uncomplicated
CPT/HCPCS: 71045; 74176; 80053; 81003; 83605; 85025; 87040; 93005; 96365; 99285; J0696; J7030

== ENCOUNTER 2022-01-30 06:27 | Emergency (ER) | payer MEDICAID, SELFPAY ==
[2021-12-26 14:56] VITALS: BP 123/80; BMI 42.9
[2022-01-30 06:37] VITALS: BP 141/79; PULSE 119; RESP 18; TEMP 36.6; O2SAT 97; BMI 41.7
--- NOTE | 2022-01-30 06:53 | ED_ITS ---
HPI - Dental/Oral General: Chief complaint: Dental/Oral Stated complaint: face swollen, n/v Time Seen by Provider: 01/30/22 06:48 History of Present Illness: 21 y/o male with 2 day history of dental pain and swelling. Left upper cheek swelling. No intra-oral drainage. No fever. Denies difficuly swallowing. No fever. No nausea or vomiting. No prior history of dental abscess Associated symptoms: Denies fever(s) Review of Systems Const: Denies: fever(s) ENMT: Reports: dental pain and other (left cheek and maxillary swelling) GI: Denies: nausea or vomiting Neuro: Denies: headache(s) PFSH ED PFSH: Medical History (Updated 01/30/22 @ 07:54 by Liane Lebron MD) Condyloma acuminatum due to human papillomavirus Generalized anxiety disorder Hypertension Morbid obesity with BMI of 40.0-44.9, adult Psychiatric care Schizoaffective disorder Surgical History No pertinent past surgical history Family History Grandmother Diabetes Mother Hypertension Other MDD (major depressive disorder), single episode, severe with psychotic features Social History Smoking and tobacco status: current every day smoker cigarettes [ Other cigarette details: 1 Pack per 7 day], e-cigarettes E-Cigarette Details: vapor izer device E-cig/vape details: 0.6% only vape every 2 days and smokeless tobacco Smokeless tobacco user: chewing tobacco Smokeless tobacco details: 1 can every month Quit status (tobacco): has quit using tobacco Year quit tobacco: 10/22 for 8 months Second hand smoke exposure: Yes Alcohol intake: never Lives independently: Yes Household members: other Details: grandma Housing: Apartment Marital status: Single Highest education level completed: High School Graduate Current occupational status: unemployed Current occupational exposures/hazards: No Pets and animals: Yes Pets & animals: cat(s) History of recent travel: No Leisure activites: other Leisure activities details: video games, sleep Sexually active: No Current gender identity: Male Kat/Advent: None Special kat needs: No Agree to transfusion: Yes Financial difficulty paying for basics: Not Very Hard Physical Exam Narrative: EXAM NARRATIVE: no acute distress Const: COMMON NORMALS: patient oriented x3 HENMT: FACE & SINUS: edema (swelling of left cheek area) TEETH & GINGIVA: Yes abnormal tooth and associated gingiva (swelling / fluctuance above 2nd premolar left maxillary area), Yes caries and Yes other (no trismus) Neck/C-Spine: OTHER: trachea midline; + lymphadenopathy Resp: EFFORT & INSPECTION: Yes able to speak in complete sentences and No resp iratory distress Cardio: OTHER: normal rate GI: OTHER: non-distended Extremity: OTHER: no edema Neuro: COMMON NORMALS: patient oriented x3, CN's II-XII intact bilaterally and moves all extremities Skin: NARRATIVE SKIN EXAM: no rash noted; normal color Procedures Abscess I/D Site: oral (left 1st premolar maxillary area) Side (if applicable): left Sedation/analgesia: none Local Anesthetic: lidocaine 1% and with epi Amount of anesthesia used (mL): 4 Technique: incised with #11 blade Irrigation: No Packing used?: none Complications: other (no complications - infraorbital nerve block) Course Vital Signs: Vital signs: Vital Signs Temperature 97.9 F 01/30/22 06:37 Pulse Rate 74 01/30/22 08:13 Respiratory Rate 16 01/30/22 08:13 Blood Pressure 132/70 01/30/22 08:13 Pulse Oximetry 99 01/30/22 08:13 MDM - Dental/Oral Medical Decision Making Patient presents with a simple dental abscess in the left maxillary region. Its been incised and drained after an infraorbital nerve block. Will discharge patient on clindamycin 300 mg 3 times daily x10 days. Also given him 800 mg ibuprofen to take every 8 hours as needed for pain. I recommended that he follow-up first available with the dentist. Return precautions have been discussed Discharge Plan Discharge Patient Disposition: Home Clinical Impression: Toothache, Gingival abscess Condition: Stable Prescriptions: New ibuprofen 800 mg tablet 800 mg PO Q8H PRN (Reason: pain) Qty: 20 0RF clindamycin HCl 300 mg capsule 300 mg PO TID 10 Days Qty: 30 0RF No Action lisinopril 10 mg tablet 10 mg PO DAILY meloxicam 15 mg tablet 15 mg PO DAILY PRN lorazepam 0.5 mg tablet 0.5 mg PO .qhs 30 Days Qty: 30 3RF benztropine 1 mg tablet 1 mg PO BID PRN (Reason: Mild Extrapyramidal symptoms) 30 Days Qty: 60 1RF paliperidone 9 mg tablet extended release 24hr 9 mg PO .q hs 30 Days Qty: 30 3RF Rx Instructions: Take one tablet daily at bedtime prazosin 1 mg capsule 2 mg PO .q hs 30 Days Qty: 60 3RF Rx Instructions: Take two capsules daily at bedtime; hold for low blood pressure sertraline 100 mg tablet 200 mg PO DAILY 30 Days Qty: 60 3RF omeprazole 20 mg capsule,delayed release(DR/EC) 20 mg PO DAILY 30 Days Qty: 30 1RF Discharge Orders: Discharge ED (Routine); Ordered 01/30/22 Ordered By: Liane Lebron Referrals: Olya Brandt FNP [Primary Care Provider] - Discharge Diet: Advance as tolerated Discharge Activity: Resume usual activity Patient Instructions: Dental Abscess (ED), Opioid Safety, Pain Management Activity Restrictions/Additional Instructions: Take antibiotics 3 times daily till gone. He can take ibuprofen 3 times daily as needed for pain. He need to be on a soft diet. He need follow-up first available with a dentist Coding Level of Care Code ED Production Control Expediter for Dae Fwd Exam Expanded Problem Focused
[2022-01-30] MEDS: HYDROcodone-acetaminophen 10-325 mg Tablet 1 TAB PO (07:11)
[2022-01-30] MEDS: ondansetron 4 MG Tablet PO (07:11)
[2022-01-30 08:13] VITALS: BP 132/70; PULSE 74; RESP 16; O2SAT 99
== END 2022-01-30 08:15 | disposition home or self-care (01) ==
PROVIDERS: Emergency Provider Emergency Medicine; PCP Nurse Practitioner Family
DX: K08.89 Other specified disorders of teeth and supporting structures (principal); K05.20 Aggressive periodontitis, unspecified; I10 Essential (primary) hypertension; F17.210 Nicotine dependence, cigarettes, uncomplicated; F17.290 Nicotine dependence, other tobacco product, uncomplicated; F17.220 Nicotine dependence, chewing tobacco, uncomplicated
CPT/HCPCS: 41800; 99283; Q0162

== ENCOUNTER → 2022-04-10 14:57 | Outpatient (BNVA) | payer MEDICAID, SELFPAY ==
[2021-12-26 14:56] VITALS: BP 123/80; BMI 42.9
== END ==
PROVIDERS: PCP Nurse Practitioner Family; Visit Provider Psychiatry & Neurology Psychiatry
DX: Z79.899 Other long term (current) drug therapy (principal)
CPT/HCPCS: 80053; 80061; 83036; 83721; 84443; 85025

== ENCOUNTER 2022-07-02 20:00 | Outpatient (CLI) | payer MEDICAID, SELFPAY ==
[2021-12-26 14:56] VITALS: BP 123/80; BMI 42.9
== END 2022-07-02 20:01 | disposition home or self-care (01) ==
LOC: SLEEP 07-03 06:21
PROVIDERS: PCP Nurse Practitioner Family; Visit Provider Nurse Practitioner Family
DX: G47.33 Obstructive sleep apnea (adult) (pediatric) (principal)
CPT/HCPCS: 95810

== ENCOUNTER → 2023-03-14 12:13 | Outpatient (BNVA) | payer MEDICAID, SELFPAY ==
[2023-03-07 12:08] VITALS: BP 123/80; BMI 42.9
== END ==
PROVIDERS: Visit Provider Nurse Practitioner Family
DX: K21.9 Gastro-esophageal reflux disease without esophagitis (principal); I10 Essential (primary) hypertension; F25.1 Schizoaffective disorder, depressive type; M25.50 Pain in unspecified joint; E66.01 Morbid (severe) obesity due to excess calories; Z68.41 Body mass index [BMI] 40.0-44.9, adult; Z79.899 Other long term (current) drug therapy
CPT/HCPCS: 80053; 80061; 83036; 84443; 85025

== ENCOUNTER 2023-05-13 21:31 | Observation (INO) | payer MEDICAID, SELFPAY ==
[2023-03-07 12:08] VITALS: BP 123/80; BMI 42.9
[2023-05-13 21:35] VITALS: BP 174/109; PULSE 122; RESP 18; TEMP 37.4; O2SAT 96
--- NOTE | 2023-05-13 22:02 | W.ED.DENTAL ---
Documented by User: JONO Wilcox 05/14/23 00:59 HPI - Dental/Oral General: Chief complaint: Dental/Oral Stated complaint: left mouth pain Time Seen by Provider: 05/13/23 21:47 Source: patient Mode of arrival: ambulatory Limitations: no limitations History of Present Illness: Patient is a 22-year-old male who presents to the emergency department complaining of tooth pain onset 3 days. Patient states he does not see a dentist regularly as he has been unable to find one that takes Medicaid. His current pain is to the left upper maxillary region, and is starting to spread upwards. He denies any fevers, nausea or vomiting, or any other symptoms. He has not tried anything for his pain. MD Complaint: tooth pain Onset (ago): day(s) (3) Duration: worsening Context: poor dental care Associated symptoms: Denies ear or mastoid pain, fever(s) or odynophagia Treatment prior to arrival: none Review of Systems General: Reports: 10 or more systems reviewed and unremarkable except in HPI and below Const: Denies: fever(s), chills or malaise ENMT: Reports: dental pain and sinus pain; Denies: throat pain, odynophagia, swelling of lips/tongue or ear or mastoid pain Card: Denies: chest pain or palpitations Resp: Denies: dyspnea or productive cough GI: Denies: abdominal pain, nausea, vomiting or diarrhea Musc: Denies: neck pain, back pain or joint pain Skin/Breast: Denies: rash Neuro: Denies: headache(s) or dizziness PFS ED PFSH: Medical History Generalized anxiety disorder Schizoaffective disorder Psychiatric care Condyloma acuminatum due to human papillomavirus Morbid obesity with BMI of 40.0-44.9, adult Hypertension Surgical History No pertinent past surgical history Family History Grandmother Diabetes Mother Hypertension Other MDD (major depressive disorder), single episode, severe with psychotic features Social History Smoking and tobacco/nicotine status: current every day tobacco/nicotine user cigarettes [ Other cigarette details: 1 Pack per 7 day], e-cigarettes E-Cigarette Details: vaporizer device E-cig/vape details: 0.6% only vape every 2 days and smokeless tobacco Smokeless tobacco user: chewing tobacco Smokeless tobacco details: 1 can every month Quit status (tobacco/nicotine): has quit using Year quit tobacco: 10/22 for 8 months Second hand smoke exposure: Yes Alcohol intake: never Substance/Drug Use: never Lives independently: Yes Household members: other Details: grandma Housing: Apartment Marital status: Single Highest education level completed: High School Graduate Current occupational status: unemployed Current occupational exposures/hazards: No Pets and animals: Yes Pets & animals: cat(s) Leisure activites: other Leisure activities details: video games, sleep Sexually active: No Current gender identity: Male Kat/Caodaism: None Special kat needs: No Agree to transfusion: Yes Physical Exam Const: COMMON NORMALS: no acute distress, patient oriented x3, no limitations and alert GENERAL APPEARANCE: cooperative and comfortable NUTRITIONAL APPEARANCE: obese morbidly obese ORIENTATION/CONSCIOUSNESS: Yes awake HENMT: COMMON NORMALS: normocephalic, atraumatic, hearing grossly normal bilaterally, external ears normal, Normal external nose present, Normal nasal mucous membranes and turbinates present, moist oral mucous membranes and oropharynx normal HEAD & SCALP: normocephalic and atraumatic FACE & SINUS: Facial tenderness on exam of face and sinuses on the left maxilla NOSE: Normal external nose present and Normal nasal mucous membranes and turbinates present EXTERNAL EAR: Yes external ears normal MOUTH: Normal oral and palatal mucosa present, lip normal and tongue normal TEETH & GINGIVA: Yes abnormal tooth and associated gingiva (Left upper first molar is fractured, some gingival erythema noted) and Yes fair dentition THROAT: posterior oropharynx normal Eye: COMMON NORMALS: EOMs intact bilaterally and conjunctivae normal CONJUNCTIVA: Yes conjunctivae normal Neck/C-Spine: COMMON NORMALS: full ROM Resp: COMMON NORMALS: normal respiratory effort, No retractions, No use of accessory muscles and clear to auscultation bilaterally AUSCULTATION: clear to auscultation bilaterally Cardio: COMMON NORMALS: regular rhythm, S1 normal heart sound present, S2 normal heart sound present, No gallops present (Cardio), No clicks present (Cardio), No murmurs present (Cardio) and No rub (Cardio) RATE: tachycardic RHYTHM: regular rhythm HEART SOUNDS: S1 normal heart sound present and S2 normal heart sound present Extremity: COMMON NORMALS: normal to inspection and full ROM Neuro: COMMON NORMALS: patient oriented x3, moves all extremities, no focal motor deficits and no sensory deficits noted SENSORIUM/ORIENTATION: Yes alert Psych: COMMON NORMALS: mental status grossly normal Skin: COMMON NORMALS: no rashes or lesions noted GENERAL SKIN EXAM: no rashes or lesions noted Course Vital Signs: Vital signs: Vital Signs Temperature 7.7 F L 05/14/23 12:00 Pulse Rate 121 H 05/14/23 12:00 Respiratory Rate 22 H 05/14/23 12:00 Blood Pressure 165/87 05/14/23 12:00 Pulse Oximetry 96 05/14/23 12:00 Oxygen Delivery Me thod Room Air 05/14/23 12:00 MDM - Dental/Oral Lab Data 05/13/23 23:10 05/13/23 23:10 Radiology Impressions Chest X-Ray 05/14/23 01:56 IMPRESSION: Bronchovascular crowding without acute cardiopulmonary findings. Laboratory Results WBC 8.22 10^3/uL (3.29-11.43) 05/13/23 23:10 RBC 5.04 10^6/uL (3.85-5.65) 05/13/23 23:10 Hgb 14.60 g/dL (11.27-16.99) 05/13/23 23:10 Hct 43.4 % (37-53) 05/13/23 23:10 MCV 86.1 fl (82-101) 05/13/23 23:10 MCH 29.0 pg (27-33) 05/13/23 23:10 MCHC 33.6 g/dL (30-55) 05/13/23 23:10 RDW 12.7 % (12.1-15.1) 05/13/23 23:10 Plt Count 258 10^3/cmm (157-399) 05/13/23 23:10 MPV 10.4 fL (7.4-10.4) 05/13/23 23:10 Neut % (Auto) 63.0 % 05/13/23 23:10 Lymph % (Auto) 24.6 % 05/13/23 23:10 [place] % (Auto) 7.4 % 05/13/23 23:10 Eos % (Auto) 3.3 % 05/13/23 23:10 Baso % (Auto) 1.1 % 05/13/23 23:10 Neut # (Auto) 5.18 10^3/uL (1.8-7.7) 05/13/23 23:10 Lymph # (Auto) 2.0 10^3/uL (0.8-4.8) 05/13/23 23:10 [place] # (Auto) 0.6 10^3/uL (0.2-0.9) 05/13/23 23:10 Eos # (Auto) 0.3 10^3/uL (0.0-0.8) 05/13/23 23:10 Baso # (Auto) 0.1 10^3/uL (0.0-0.1) 05/13/23 23:10 Nucleated RBC % (auto) 0 % 05/13/23 23:10 Nucleated RBCs # 0.0 /100WBC 05/13/23 23:10 D-Dimer 0.33 ug/mLFEU (0-0.59) 05/13/23 23:10 Sodium 139 mmol/L (136-145) 05/13/23 23:10 Potassium 4.4 mmol/L (3.5-5.1) 05/13/23 23:10 Chloride 105 mmol/L (98-107) 05/13/23 23:10 Carbon Dioxide 19 mmol/L (22-29) L 05/13/23 23:10 Anion Gap 19.4 (5-19) H 05/13/23 23:10 BUN 14 mg/dL (6-20) 05/13/23 23:10 Creatinine 0.8 mg/dL (0.7-1.2) 05/13/23 23:10 GFR Calculation 122.0 mL/min (90-130) 05/13/23 23:10 Glucose 165 mg/dL (65-115) H 05/13/23 23:10 Calculated Osmolality 292 mOsm/kg (285-295) 05/13/23 23:10 Calcium 9.3 mg/dL (8.5-10.5) 05/13/23 23:10 Total Bilirubin 0.2 mg/dL (0.15-1.2) 05/13/23 23:10 AST 19 U/L (0-40) 05/13/23 23:10 ALT 31 U/L (0-41) 05/13/23 23:10 Alkaline Phosphatase 95 U/L (40-130) 05/13/23 23:10 Troponin T Baseline 8 ng/L (0-15) 05/14/23 02:05 Troponin T 120 Minute 6.00 ng/L (0-15) 05/14/23 04:25 Delta Troponin T -2.00 ABS# (0-10) L 05/14/23 04:25 NT-Pro-B Natriuret Pep < 36 pg/mL (0-125) 05/14/23 04:25 Total Protein 7.2 g/dL (6.6-8.7) 05/13/23 23:10 Albumin 4.0 g/dL (3.5-5.2) 05/13/23 23:10 Globulin 3.2 g/dL (1.3-4.6) 05/13/23 23:10 TSH 3.34 uIU/mL (0.27-4.20) 05/13/23 23:10 Urine Color Yellow (Yellow) 05/14/23 00:05 Urine Appearance Clear (CLEAR) 05/14/23 00:05 Urine pH 5 (5-7) 05/14/23 00:05 Ur Specific [place] 1.030 (1.005-1.030) 05/14/23 00:05 Urine Protein Neg (Negative) 05/14/23 00:05 Urine Glucose (UA) Norm (Normal) 05/14/23 00:05 Urine Ketones Negative (Negative) 05/14/23 00:05 Urine Blood Neg (Negative) 05/14/23 00:05 Urine Nitrate Negative (Negative) 05/14/23 00:05 Urine Bilirubin Neg (Negative) 05/14/23 00:05 Urine Urobilinogen Neg mg/dL (Negative) 05/14/23 00:05 Ur Leukocyte Esterase Negative (Negative) 05/14/23 00:05 Discharge Plan Discharge Patient Disposition: Admitted As Inpatient Admit Provider: Vin Harrison Clinical Impression: Atrial flutter with rapid ventricular response, Dehydration Condition: Stable Discharge Diet: Usual diet Discharge Activity: Increase activity as tolerated Coding Level of Care Code ED Facility Maintenance Technician for Chg Fwd Documented by User: Layton Barker MD 05/14/23 18:00 HPI - Dental/Oral General: Chief complaint: Dental/Oral Stated complaint: left mouth pain Time Seen by Provider: 05/13/23 21:47 PFSH ED PFSH: Medical History Generalized anxiety disorder Schizoaffective disorder Psychiatric care Condyloma acuminatum due to human papillomavirus Morbid obesity with BMI of 40.0-44.9, adult Hypertension Surgical History No pertinent past surgical history Family History Grandmother Diabetes Mother Hypertension Other MDD (major depressive disorder), single episode, severe with psychotic features Social History Smoking and tobacco/nicotine status: current every day tobacco/nicotine user cigarettes [ Other cigarette details: 1 Pack per 7 day], e-cigarettes E-Cigarette Details: vaporizer device E-cig/vape details: 0.6% only vape every 2 days and smokeless tobacco Smokeless tobacco user: chewing tobacco Smokeless tobacco details: 1 can every month Quit status (tobacco/nicotine): has quit using Year quit tobacco: 10/22 for 8 months Second hand smoke exposure: Yes Alcohol intake: never Substance/Drug Use: never Lives independently: Yes Household members: other Details: grandma Housing: Apartment Marital status: Single Highest education level completed: High School Graduate Current occupational status: unemployed Current occupational exposures/hazards: No Pets and animals: Yes Pets & animals: cat(s) Leisure activites: other Leisure activities details: video games, sleep Sexually active: No Current gender identity: Male Kat/Caodaism: None Special kat needs: No Agree to transfusion: Yes Course Vital Signs: Vital signs: Vital Signs Temperature 7.7 F L 05/14/23 12:00 Pulse Rate 121 H 05/14/23 12:00 Respiratory Rate 22 H 05/14/23 12:00 Blood Pressure 165/87 05/14/23 12:00 Pulse Oximetry 96 05/14/23 12:00 Oxygen Delivery Me thod Room Air 05/14/23 12:00 MDM - Dental/Oral Medical Decision Making I discussed the patient's history of present illness, physical exam findings, pertinent labs and plan of care with the midlevel provider. I did personally have a [id number] evaluation and discussion with the patient regarding the plan of care and the need for further admission. I have discussed the patient's case with the off going midlevel provider and I have assumed care of the patient. We have discussed the current lab/radiographic results that have been resulted and the pending tests. Medical Records I reviewed the patient's medical records. Lab Data I reviewed the patient's lab results. 05/13/23 23:10 05/13/23 23:10 Radiology Impressions Chest X-Ray 05/14/23 01:56 IMPRESSION: Bronchovascular crowding without acute cardiopulmonary findings. Laboratory Results WBC 8.22 10^3/uL (3.29-11.43) 05/13/23 23:10 RBC 5.04 10^6/uL (3.85-5.65) 05/13/23 23:10 Hgb 14.60 g/dL (11.27-16.99) 05/13/23 23:10 Hct 43.4 % (37-53) 05/13/23 23:10 MCV 86.1 fl (82-101) 05/13/23 23:10 MCH 29.0 pg (27-33) 05/13/23 23:10 MCHC 33.6 g/dL (30-55) 05/13/23 23:10 RDW 12.7 % (12.1-15.1) 05/13/23 23:10 Plt Count 258 10^3/cmm (157-399) 05/13/23 23:10 MPV 10.4 fL (7.4-10.4) 05/13/23 23:10 Neut % (Auto) 63.0 % 05/13/23 23:10 Lymph % (Auto) 24.6 % 05/13/23 23:10 [place] % (Auto) 7.4 % 05/13/23 23:10 Eos % (Auto) 3.3 % 05/13/23 23:10 Baso % (Auto) 1.1 % 05/13/23 23:10 Neut # (Auto) 5.18 10^3/uL (1.8-7.7) 05/13/23 23:10 Lymph # (Auto) 2.0 10^3/uL (0.8-4.8) 05/13/23 23:10 [place] # (Auto) 0.6 10^3/uL (0.2-0.9) 05/13/23 23:10 Eos # (Auto) 0.3 10^3/uL (0.0-0.8) 05/13/23 23:10 Baso # (Auto) 0.1 10^3/uL (0.0-0.1) 05/13/23 23:10 Nucleated RBC % (auto) 0 % 05/13/23 23:10 Nucleated RBCs # 0.0 /100WBC 05/13/23 23:10 D-Dimer 0.33 ug/mLFEU (0-0.59) 05/13/23 23:10 Sodium 139 mmol/L (136-145) 05/13/23 23:10 Potassium 4.4 mmol/L (3.5-5.1) 05/13/23 23:10 Chloride 105 mmol/L (98-107) 05/13/23 23:10 Carbon Dioxide 19 mmol/L (22-29) L 05/13/23 23:10 Anion Gap 19.4 (5-19) H 05/13/23 23:10 BUN 14 mg/dL (6-20) 05/13/23 23:10 Creatinine 0.8 mg/dL (0.7-1.2) 05/13/23 23:10 GFR Calculation 122.0 mL/min (90-130) 05/13/23 23:10 Glucose 165 mg/dL (65-115) H 05/13/23 23:10 Calculated Osmolality 292 mOsm/kg (285-295) 05/13/23 23:10 Calcium 9.3 mg/dL (8.5-10.5) 05/13/23 23:10 Total Bilirubin 0.2 mg/dL (0.15-1.2) 05/13/23 23:10 AST 19 U/L (0-40) 05/13/23 23:10 ALT 31 U/L (0-41) 05/13/23 23:10 Alkaline Phosphatase 95 U/L (40-130) 05/13/23 23:10 Troponin T Baseline 8 ng/L (0-15) 05/14/23 02:05 Troponin T 120 Minute 6.00 ng/L (0-15) 05/14/23 04:25 Delta Troponin T -2.00 ABS# (0-10) L 05/14/23 04:25 NT-Pro-B Natriuret Pep < 36 pg/mL (0-125) 05/14/23 04:25 Total Protein 7.2 g/dL (6.6-8.7) 05/13/23 23:10 Albumin 4.0 g/dL (3.5-5.2) 05/13/23 23:10 Globulin 3.2 g/dL (1.3-4.6) 05/13/23 23:10 TSH 3.34 uIU/mL (0.27-4.20) 05/13/23 23:10 Urine Color Yellow (Yellow) 05/14/23 00:05 Urine Appearance Clear (CLEAR) 05/14/23 00:05 Urine pH 5 (5-7) 05/14/23 00:05 Ur Specific [place] 1.030 (1.005-1.030) 05/14/23 00:05 Urine Protein Neg (Negative) 05/14/23 00:05 Urine Glucose (UA) Norm (Normal) 05/14/23 00:05 Urine Ketones Negative (Negative) 05/14/23 00:05 Urine Blood Neg (Negative) 05/14/23 00:05 Urine Nitrate Negative (Negative) 05/14/23 00:05 Urine Bilirubin Neg (Negative) 05/14/23 00:05 Urine Urobilinogen Neg mg/dL (Negative) 05/14/23 00:05 Ur Leukocyte Esterase Negative (Negative) 05/14/23 00:05 No radiology studies performed this visit Discharge Plan Discharge Patient Disposition: Admitted As Inpatient Admit Provider: Vin Harrison Clinical Impression: Atrial flutter with rapid ventricular response, Dehydration Condition: Stable Discharge Diet: Usual diet Discharge Activity: Increase activity as tolerated Coding Level of Care Code ED Facility Maintenance Technician for Dae Garcia
[2023-05-13] MEDS: ibuprofen 600 mg Tablet PO (22:34)
--- NOTE | 2023-05-13 22:54 | ECG_ITS ---
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 Measurements Intervals [place] Rate: 148 P: 64 NM: 137 QRS: 41 QRSD: 88 T: 68 QT: 259 QTc: 407 Interpretive Statements SINUS TACHYCARDIA, POSSIBLE ATRIAL FLUTTER ABNORMAL RHYTHM ECG Compared to ECG 01/01/2022 21:52:48 T-wave abnormality no longer present Electronically Signed On 05-14-2023 23:18:00 CDT by Darrel Light M.D. [id number]
[2023-05-13 23:19] LABS: Basophils # 0.1 10^3/uL (0.0-0.1); Basophils % 1.1 %; Eosinophils # 0.3 10^3/uL (0.0-0.8); Eosinophils % 3.3 %; Hematocrit 43.4 % (37-53); Lymphocytes % 24.6 %; Mean Corpuscular HGB Conc 33.6 g/dL (30-55); Mean Corpuscular Volume 86.1 fl (82-101); Mean Platelet Volume 10.4 fL (7.4-10.4); Monocytes # 0.6 10^3/uL (0.2-0.9); Monocytes % 7.4 %; Neutrophils # 5.18 10^3/uL (1.8-7.7); Nucleated Red Blood Cells % 0 %; Platelet Count 258 10^3/cmm (157-399); Red Blood Count 5.04 10^6/uL (3.85-5.65); Red Cell Distribution Width 12.7 % (12.1-15.1); White Blood Count 8.22 10^3/uL (3.29-11.43)
[2023-05-13 23:29] VITALS: BP 124/85; PULSE 141; RESP 26; O2SAT 96
[2023-05-13] MEDS: sodium chloride 0.9% 1,000 ML 999 ML IV (23:33)
[2023-05-13 23:48] LABS: Alanine Aminotransferase 31 U/L (0-41); Alkaline Phosphatase 95 U/L (40-130); Anion Gap 19.4 (5-19); Aspartate Amino Transferase 19 U/L (0-40); Blood Urea Nitrogen 14 mg/dL (6-20); Calcium 9.3 mg/dL (8.5-10.5); Carbon Dioxide 19 mmol/L (22-29); Chloride 105 mmol/L (98-107); Creatinine Clr Calc Pharmacy 253.7849; Globulin 3.2 g/dL (1.3-4.6); Glucose 165 mg/dL (65-115); Osmolality Calculated 292 mOsm/kg (285-295); Potassium 4.4 mmol/L (3.5-5.1); Sodium 139 mmol/L (136-145); Thyroid Stimulating Hormone 3.34 uIU/mL (0.27-4.20); Total Bilirubin 0.2 mg/dL (0.15-1.2); Total Protein 7.2 g/dL (6.6-8.7)
[2023-05-14] VITALS (18 sets, daily range): BP systolic 108–165; BP diastolic 61–92; PULSE 100–127; RESP 16–35; TEMP -13.5–37.1; O2SAT 91–96
[2023-05-14 00:12] LABS: Add Urine Microscopic? NO; Charge for UA Resulting for Rev
[2023-05-14 00:15] LABS: Bilirubin Urine Neg (Negative); Blood Urine Neg (Negative); Glucose Urine UA Norm (Normal); Ketones Urine Negative (Negative); Leukocyte Esterase Urine Negative (Negative); Nitrate Urine Negative (Negative); Protein Urine Neg (Negative); Urine Appearance Clear (CLEAR); Urine Color Yellow (Yellow); Urobilinogen Urine Neg (Negative); pH Urine 5 (5-7)
--- NOTE | 2023-05-14 01:14 | ECG_ITS ---
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 Measurements Intervals [place] Rate: 117 P: 72 FL: 139 QRS: 60 QRSD: 86 T: 61 QT: 303 QTc: 423 Interpretive Statements SINUS TACHYCARDIA ABNORMAL RHYTHM ECG Compared to ECG 05/13/2023 23:13:59 No significant changes Electronically Signed On 05-14-2023 23:03:49 CDT by Darrel Light M.D. [id number]
[2023-05-14] MEDS: sodium chloride 0.9% 1,000 ML 999 ML IV (01:23)
--- NOTE | 2023-05-14 01:56 | XRR_ITS ---
PROCEDURE INFORMATION: Exam: XR Chest Exam date and time: 05/14/2023 2:05 AM Age: 22 years old Clinical indication: Other: Palpitations TECHNIQUE: Imaging protocol: Radiologic exam of the chest. Views: 1 view. COMPARISON: CR XR chest 1V portable [id number] 01/01/2022 8:26 PM FINDINGS: Lungs: Symmetric hypoinflation producing bronchovascular crowding. Pleural spaces: Unremarkable. No pleural effusion. No pneumothorax. Heart/Mediastinum: Unremarkable. No cardiomegaly. Bones/joints: Unremarkable. XR/XR chest 1V portable [id number] IMPRESSION: Bronchovascular crowding without acute cardiopulmonary findings.
[2023-05-14] MEDS: dilTIAZem 5 mg/mL SDV 5 mL 10 MG IVP ×2 (02:18→02:36)
[2023-05-14 02:33] LABS: Troponin(5th) Baseline 8 ng/L (0-15)
[2023-05-14] MEDS: dilTIAZem 100 MG in sodium chloride 0.9% (add-van) 100 ML IV (03:29)
--- NOTE | 2023-05-14 05:16 | P.HP_ITS ---
Providers/Chief Complaint 2 Admitting Physician: Vin Harrison MD Chief Complaint: left mouth pain History of Present Illness Damián Parnell is a 22 year old male with history of schizophrenia, present to the hospital for chief complaint of tooth ache. Patient is stating that for last 3 to 4 days he has been experiencing tooth ache left upper molar he has not seen a dentist, he has not noticed any chest pain, shortness of breath, fever, nausea or vomiting. He is not complaining of severe headache. He is denying use of alcohol or recreational drugs such as cocaine or methamphetamine. Endorses to Vaps. Patient is on disability secondary to schizophrenia. In the ER there was plan to discharge him home however ER doctor noticed sinus tachycardia with concern related to atrial flutter he was given Cardizem which did not improve his heart rate, he was put on Cardizem drip hospitalist was called to admit him, on my evaluation patient is in sinus rhythm I have discontinued Cardizem drip patient has also received 2 L of IV bolus I do not see any signs of dental abscess, will request D-dimer, TSH, drug screen. Patient will need a dentist. I will give him Augmentin and doxycycline. Patient is morbidly obese, has sleep apnea, stating that he has not been able to use his CPAP at home because machine does not have an SD card Review of Systems 2 Const: Denies: fever(s) Eyes: Denies: change in vision ENMT: Denies: throat pain Card: Denies: chest pain Resp: Denies: dyspnea GI: Denies: abdominal pain : Denies: flank pain Medications/Allergies Home Medications Medication Instructions Recorded Confirmed Last Taken Type sertraline 100 mg tablet 200 mg (2 x 100 mg) PO DAILY 30 03/07/23 05/14/23 Unknown Rx days #60 tabs meloxicam 15 mg tablet 15 mg PO DAILY PRN pain #30 tabs 03/14/23 05/14/23 Unknown Rx omeprazole 20 mg capsule,delayed 20 mg PO DAILY 30 days #30 caps 03/14/23 05/14/23 Unknown Rx release lisinopril 20 mg tablet 20 mg PO DAILY #30 tabs 03/22/23 05/14/23 05/13/23 Rx amoxicillin 875 mg-potassium 1 tab PO BID 10 days #20 tabs 05/13/23 Unknown Rx clavulanate 125 mg tablet ibuprofen 800 mg tablet 800 mg PO Q8H PRN pain #60 tabs 05/13/23 Unknown Rx benztropine 1 mg tablet 1 mg PO BEDTIME PRN Mild 05/14/23 05/14/23 Unknown History Extrapyramidal symptoms hydroxyzine HCl 10 mg tablet 10 mg PO BEDTIME PRN sleep 05/14/23 05/14/23 Unknown History loxapine succinate 25 mg capsule 25 mg PO BEDTIME 05/14/23 05/14/23 05/13/23 History prazosin 2 mg capsule 2 mg PO BEDTIME 05/14/23 05/14/23 Unknown History Allergies Allergy/AdvReac Type Severity Reaction Status Date / Time pollen extracts Allergy headache Verified 04/29/23 07:42 PFSH Acute 2 PFSH: Medical History Generalized anxiety disorder Schizoaffective disorder Psychiatric care Condyloma acuminatum due to human papillomavirus Morbid obesity with BMI of 40.0-44.9, adult Hypertension Surgical History No pertinent past surgical history Family History Grandmother Diabetes Mother Hypertension Other MDD (major depressive disorder), single episode, severe with psychotic features Social History Smoking and tobacco/nicotine status: current every day tobacco/nicotine user cigarettes [ Other cigarette details: 1 Pack per 7 day], e-cigarettes E- Cigarette Details: vaporizer device E-cig/vape details: 0.6% only vape every 2 days and smokeless tobacco Smokeless tobacco user: chewing tobacco Smokeless tobacco details: 1 can every month Quit status (tobacco/nicotine): has quit using Year quit tobacco: 10/22 for 8 months Second hand smoke exposure: Yes Alcohol intake: never Substance/Drug Use: never Lives independently: Yes Household members: other Details: grandma Housing: Apartment Marital status: Single Highest education level completed: High School Graduate Current occupational status: unemployed Current occupational exposures/hazards: No Pets and animals: Yes Pets & animals: cat(s) Leisure activites: other Leisure activities details: video games, sleep Sexually active: No Current gender identity: Male Kat/Scientology: None Special kat needs: No Agree to transfusion: Yes Vitals/I&O/Wt Last Vital Signs Temp 99.3 F 05/13/23 21:35 Pulse 108 H 05/14/23 05:15 Resp 27 H 05/14/23 02:45 BP 121/73 05/14/23 02:45 Pulse Ox 95 05/14/23 02:45 O2 Del Method Room Air 05/14/23 04:06 05/13/23 05/13/23 05/14/23 14:59 22:59 06:59 Intake Total 1999 Balance 1999 Weight last 48 hrs Weight 183.07 kg Weight 176.901 kg Physical Exam 2 Narrative: Morbid obese GCS 15 Nonfocal neuroexam Abdomen nonfocal neuroexam Pleasant cooperative Left upper molar tooth decay noted No abscess No antibiotics No signs of meningitis Abdomen soft Distended Lower extremity nonpitting edema S1, S2 Currently on room air Hemodynamically stable Heart rate 1 10-1 15 sinus tachycardia Data 05/13/23 23:10 05/13/23 23:10 A&P Assessment and plan (1) Schizoaffective disorder: Qualifiers: Schizoaffective disorder type: depressive Qualified Code(s): F25.1 - Schizoaffective disorder, depressive type (2) Generalized anxiety disorder: (3) Hypertension: Qualifiers: Hypertension type: unspecified Qualified Code(s): I10 - Essential (primary) hypertension (4) Atrial flutter with rapid ventricular response: (5) Dehydration: (6) Dental decay: Plan Sinus tachycardia I do not see any signs of atrial flutter until my evaluation Admitted to [facility]SU on telemetry Currently in sinus rhythm Discontinue Cardizem drip Check TSH, drug screen, D-dimer, will request CTA chest Will request BNP Clinically does not seem to be in fluid overload Etiology of sinus tachycardia is unknown it could be noncompliance with prazosin, patient is not in active pain, no fever, occult infection? I will put him on doxycycline and Augmentin Will request drug screen EKG consistent with sinus rhythm Obstructive sleep apnea Patient has not been using CPAP at home Schizophrenia No active exacerbation Full code Cardiac diet DVT prophylaxis added History of hypertension: May resume lisinopril Attestations 2 Medical Necessity Statement*: Anticipating discharge within 48 hours Diagnoses Schizoaffective disorder, depressive type F25.1 Schizoaffective disorder type: depressive Generalized anxiety disorder F41.1 Hypertension, unspecified type I10 Hypertension type: unspecified Atrial flutter with rapid ventricular response I48.92 Dehydration E86.0 Dental decay K02.9
--- NOTE | 2023-05-14 05:17 | CT_ITS ---
WS: [id number] CT CHEST ANGIOGRAPHY WITH REFORMATS HISTORY: aflutter new onset , tooth pain TECHNIQUE: Contiguous axial images are obtained through the chest during arterial injection of intrav enous contrast. Images are reconstructed to evaluate the pulmonary arteries. MIP imaging also reviewe d. All CT scans at [facility] use at least one of these dose optimization techniques: automat ed exposure control; mA and/or kV adjustment per patient size (includes targeted exams where dose is matched to clinical indication); or iterative reconstruction. CONTRAST: Omnipaque 350; 100 mL IV. DLP: 1401.45 mGy.cm COMPARISON: None available. Suboptimal opacification of the pulmonary arteries. Centrally there are no filling defects in the pul monary arteries. There is no RIGHT heart strain. Lung volumes are decreased. Poor inspiratory effort. There is motion artifact. No mass or consolidation. Benign granuloma central RIGHT lung. No adenopathy. No adrenal mass. IMPRESSION: 1. Suboptimal opacification of the pulmonary arteries. No central emboli. 2. No RIGHT heart strain and no pneumonia. 3. Breathing motion artifact throughout the entire CT evaluation.
[2023-05-14 05:44] LABS: D Dimer 0.33 ug/mLFEU (0-0.59)
[2023-05-14] MEDS: sodium chloride 0.9% 1,000 ML 75 ML IV (06:56)
[2023-05-14] MEDS: enoxaparin 40 mg/0.4 mL Syringe SUBCUT (06:56)
[2023-05-14 07:26] LABS: NT Pro B Type Natriuretic Pept < 36 pg/mL (0-125)
[2023-05-14 08:38] LABS: Amphetamines Screen Urine Negative (Negative); Barbiturates Screen Urine Negative (Negative); Benzodiazepines Screen Urine Negative (Negative); Cocaine Screen Urine Negative (Negative); Opiate Screen Urine Negative (Negative); PCP Screen Urine Negative (Negative); THC Screen Urine Negative (Negative)
[2023-05-14] MEDS: amoxicillin-clav 875-125 mg Tablet 1 TAB PO ×2 (08:53→17:59)
[2023-05-14] MEDS: doxycycline 100 mg Tablet PO ×2 (08:54→17:59)
[2023-05-14] MEDS: lisinopril 20 mg Tablet PO (08:54)
--- NOTE | 2023-05-14 09:13 | CT_ITS ---
WS: [id number] CT NECK WITH CONTRAST HISTORY: maxilla, mandible, assess for any dental abscess TECHNIQUE: Contiguous 2 mm axial images are performed through the neck with intravenous contrast. Sag ittal and coronal reformats are also submitted. All CT scans at [facility] use at least one o f these dose optimization techniques: automated exposure control; mA and/or kV adjustment per patient size (includes targeted exams where dose is matched to clinical indication); or iterative reconstruc tion. CONTRAST: CONTRAST: Omnipaque 350; 100 mL IV. DLP: 316.02 mGy.cm COMPARISON: None available. Very subtle area of acute inflammatory process involving the LEFT maxilla associated with dental maddi es. This subperiosteal collection measures 1.5 x 0.5 cm. There is lucency surrounding the root of the first premolar LEFT maxilla. There is loss of bone at the apical foramen of this first premolar. Add itional dental caries with complete loss of the crown. Additional dental caries involving the crown of the second LEFT maxillary premolar. There is addition al destruction of the crown involving the RIGHT third molar of the mandible. No cervical chain significant lymphadenopathy. There are few lymph nodes which are benign in appearan ce. Larynx is negative. Oropharynx is negative. IMPRESSION: 1. Small subperiosteal abscess LEFT maxilla centered at the first premolar. Abscess measures 1.5 x 0 .5 cm. 2. Significant dental caries involving the LEFT maxillary first premolar with lucency extending to s urround the apical foramen of this tooth with loss of the normal bone. 3. Additional dental caries involving the LEFT maxillary second premolar and the RIGHT mandibular th ird molar. 4. No adenopathy.
[2023-05-14] MEDS: acetaminophen 500 mg Tablet PO ×2 (10:47→17:59)
[2023-05-14] MEDS: iohexol 350 mg/mL 500 mL Btl (per mL) IV ×2 (11:00→11:12)
--- NOTE | 2023-05-14 11:03 | PC.NURSE ---
ushered by ct scan dept staff for ct scan exam
--- NOTE | 2023-05-14 12:52 | P.TS_ITS ---
Transfer Summary Providers Date of Admission: 05/14/23 06:37 Date of Discharge/Transfer: 05/14/23 Attending Provider at Admission: Vin Harrison MD Attending Provider at Transfer: Mani Hughes Transfer Plans: Anticipated date of transfer: 05/14/23 . Diagnoses at Discharge Discharge Diagnosis (1) Schizoaffective disorder: Status: Chronic Qualifiers: Schizoaffective disorder type: depressive Qualified Code(s): F25.1 - Schizoaffective disorder, depressive type (2) Generalized anxiety disorder: Status: Acute (3) Hypertension: Status: Acute Qualifiers: Hypertension type: unspecified Qualified Code(s): I10 - Essential (primary) hypertension (4) Atrial flutter with rapid ventricular response: Status: Acute (5) Dehydration: Status: Acute (6) Dental decay: Status: Acute Reason for Visit Reason for Visit left mouth pain Hospital Course Hospital Course Pleasant 22-year-old gentleman with history of schizoaffective disorder, PATRICIA, morbid obesity, HTN, YOHANA, although CPAP machine reportedly was not functioning well, current smoker cigarettes and e-cigarettes came in for evaluation due to left-sided mouth pain/toothache for 3 to 4 days in ER with sinus tachycardia up as high as 140s. Initially was concern for possibility of arrhythmia was started on Cardizem drip, though with sinus rhythm on monitor, EKG, Cardizem was discontinued. Received IV fluid bolus 2 L, continued IV hydration, started on Augmentin, doxycycline. D-dimer was unremarkable, CTA with some motion artifact, poor opacification of the vessels, but no central PE. UA, UDS unremarkable. Noted with some anion gap 19.4, bicarb 19. No history of diabetes. Urine ketones negative. Blood cultures were collected after he had received antibiotics. CT maxilla, mandible left maxilla subperiosteal abscess centered at the first premolar 1.5 x 0.5 cm, dental caries with lucency at the left first premolar with lucency extending to surrounding the apical foramen of this tooth with loss of the normal bone. Additional dental caries incidentally also seen in the left second premolar right mandibular third molar. He is currently accepted for transfer for additional consultation assessment with oral surgery at [facility] in [place]. Physical Exam Narrative: Accompanied by family on first visit. Const: COMMON NORMALS: patient oriented x3 and alert GENERAL APPEARANCE: cooperative NUTRITIONAL APPEARANCE: obese ORIENTATION/CONSCIOUSNESS: Yes awake HENMT: COMMON NORMALS: oropharynx normal OTHER: Acute caries at the left maxillary first and second premolar. Neck/C-Spine: COMMON NORMALS: no JVD Resp: COMMON NORMALS: normal respiratory effort and clear to auscultation bilaterally AUSCULTATION: clear to auscultation bilaterally Cardio: COMMON NORMALS: no JVD, regular rhythm, S1 normal heart sound present, S2 normal heart sound present and No murmurs present (Cardio) RHYTHM: regular rhythm HEART SOUNDS: S1 normal heart sound present and S2 normal heart sound present GI: COMMON NORMALS: Normal to inspection, nondistended, normoactive bowel sounds present, Soft to palpation and non-tender PALPATION: Yes Soft to palpation Extremity: COMMON NORMALS: no joint enlargement and no pedal edema Neuro: COMMON NORMALS: patient oriented x3 and moves all extremities SENSORIUM/ORIENTATION: Yes alert Skin: COMMON NORMALS: no rashes or lesions noted GENERAL SKIN EXAM: no rashes or lesions noted TS Data Studies Completed and Pending Pending at discharge Category Date Time Status Basic Metabolic Panel AM LABS Lab 05/15/23 04:00 Ordered Blood Culture Stat Lab 05/14/23 09:57 Results C Reactive Protein AM LABS Lab 05/15/23 04:00 Ordered Complete Blood Count w/Auto AM LABS Lab 05/15/23 04:00 Ordered Magnesium AM LABS Lab 05/15/23 04:00 Ordered Completed Studies During Hospitalization Category Date Time Status CT neck w con* [id number] Routine Cat Scan 05/14/23 09:13 Completed CTA PE [CT angio chest PE protcl [id number]] Routine Cat Scan 05/14/23 05:17 Completed XR chest 1V portable [id number] Stat Exams 05/14/23 01:56 Completed Laboratory Last Values WBC 8.22 10^3/uL (3.29-11.43) 05/13/23 23:10 RBC 5.04 10^6/uL (3.85-5.65) 05/13/23 23:10 Hgb 14.60 g/dL (11.27-16.99) 05/13/23 23:10 Hct 43.4 % (37-53) 05/13/23 23:10 MCV 86.1 fl (82-101) 05/13/23 23:10 MCH 29.0 pg (27-33) 05/13/23 23:10 MCHC 33.6 g/dL (30-55) 05/13/23 23:10 RDW 12.7 % (12.1-15.1) 05/13/23 23:10 Plt Count 258 10^3/cmm (157-399) 05/13/23 23:10 MPV 10.4 fL (7.4-10.4) 05/13/23 23:10 Neut % (Auto) 63.0 % 05/13/23 23:10 Lymph % (Auto) 24.6 % 05/13/23 23:10 Wells % (Auto) 7.4 % 05/13/23 23:10 Eos % (Auto) 3.3 % 05/13/23 23:10 Baso % (Auto) 1.1 % 05/13/23 23:10 Neut # (Auto) 5.18 10^3/uL (1.8-7.7) 05/13/23 23:10 Lymph # (Auto) 2.0 10^3/uL (0.8-4.8) 05/13/23 23:10 Wells # (Auto) 0.6 10^3/uL (0.2-0.9) 05/13/23 23:10 Eos # (Auto) 0.3 10^3/uL (0.0-0.8) 05/13/23 23:10 Baso # (Auto) 0.1 10^3/uL (0.0-0.1) 05/13/23 23:10 Nucleated RBC % (auto) 0 % 05/13/23 23:10 Nucleated RBCs # 0.0 /100WBC 05/13/23 23:10 D-Dimer 0.33 ug/mLFEU (0-0.59) 05/13/23 23:10 Sodium 139 mmol/L (136-145) 05/13/23 23:10 Potassium 4.4 mmol/L (3.5-5.1) 05/13/23 23:10 Chloride 105 mmol/L (98-107) 05/13/23 23:10 Carbon Dioxide 19 mmol/L (22-29) L 05/13/23 23:10 Anion Gap 19.4 (5-19) H 05/13/23 23:10 BUN 14 mg/dL (6-20) 05/13/23 23:10 Creatinine 0.8 mg/dL (0.7-1.2) 05/13/23 23:10 GFR Calculation 122.0 mL/min (90-130) 05/13/23 23:10 Glucose 165 mg/dL (65-115) H 05/13/23 23:10 Calculated Osmolality 292 mOsm/kg (285-295) 05/13/23 23:10 Calcium 9.3 mg/dL (8.5-10.5) 05/13/23 23:10 Total Bilirubin 0.2 mg/dL (0.15-1.2) 05/13/23 23:10 AST 19 U/L (0-40) 05/13/23 23:10 ALT 31 U/L (0-41) 05/13/23 23:10 Alkaline Phosphatase 95 U/L (40-130) 05/13/23 23:10 Troponin T Baseline 8 ng/L (0-15) 05/14/23 02:05 Troponin T 120 Minute 6.00 ng/L (0-15) 05/14/23 04:25 Delta Troponin T -2.00 ABS# (0-10) L 05/14/23 04:25 Troponin T Hi Sens 6Hr 6.00 ng/L (0-15) 05/14/23 08:05 Troponin T Hi Sens 6Hr Delta -2.00 ng/L (0-12) L 05/14/23 08:05 NT-Pro-B Natriuret Pep < 36 pg/mL (0-125) 05/14/23 04:25 Total Protein 7.2 g/dL (6.6-8.7) 05/13/23 23:10 Albumin 4.0 g/dL (3.5-5.2) 05/13/23 23:10 Globulin 3.2 g/dL (1.3-4.6) 05/13/23 23:10 TSH 3.34 uIU/mL (0.27-4.20) 05/13/23 23:10 Urine Color Yellow (Yellow) 05/14/23 00:05 Urine Appearance Clear (CLEAR) 05/14/23 00:05 Urine pH 5 (5-7) 05/14/23 00:05 Ur Specific [place] 1.030 (1.005-1.030) 05/14/23 00:05 Urine Protein Neg (Negative) 05/14/23 00:05 Urine Glucose (UA) Norm (Normal) 05/14/23 00:05 Urine Ketones Negative (Negative) 05/14/23 00:05 Urine Blood Neg (Negative) 05/14/23 00:05 Urine Nitrate Negative (Negative) 05/14/23 00:05 Urine Bilirubin Neg (Negative) 05/14/23 00:05 Urine Urobilinogen Neg mg/dL (Negative) 05/14/23 00:05 Ur Leukocyte Esterase Negative (Negative) 05/14/23 00:05 Urine Opiates Screen Negative ng/mL (Negative) 05/14/23 08:05 Ur Barbiturates Screen Negative ng/mL (Negative) 05/14/23 08:05 Ur Phencyclidine Scrn Negative ng/mL (Negative) 05/14/23 08:05 Ur Amphetamines Screen Negative ng/mL (Negative) 05/14/23 08:05 U Benzodiazepines Scrn Negative ng/mL (Negative) 05/14/23 08:05 Urine Cocaine Screen Negative ng/mL (Negative) 05/14/23 08:05 U Marijuana (THC) Screen Negative ng/mL (Negative) 05/14/23 08:05 Radiology Impressions Chest X-Ray 05/14/23 01:56 IMPRESSION: Bronchovascular crowding without acute cardiopulmonary findings. Recent Clincial Data Last Vital Signs Temp 7.7 F L 05/14/23 12:00 Pulse 121 H 05/14/23 12:00 Resp 22 H 05/14/23 12:00 BP 165/87 05/14/23 12:00 Pulse Ox 96 05/14/23 12:00 O2 Del Method Room Air 05/14/23 12:00 Vital Signs Temp Pulse Resp BP Pulse Ox O2 Del Method 05/14/23 12:00 7.7 F L 121 H 22 H 165/87 96 Room Air 05/14/23 10:11 98.7 F 107 H 20 H 142/86 05/14/23 08:12 100 20 H 93 Room Air 05/14/23 05:15 108 H 05/14/23 05:00 98.5 F 110 H 35 H 139/81 91 05/14/23 04:11 125 H 05/14/23 04:06 Room Air 05/14/23 04:00 127 H 19 H 121/80 92 Room Air 05/14/23 03:30 115 H 22 H 132/80 94 Room Air 05/14/23 03:02 122 H 21 H 119/62 93 Room Air 05/14/23 02:45 126 H 27 H 121/73 95 Room Air 05/14/23 02:30 124 H 23 H 143/82 96 Room Air 05/14/23 02:18 121 H 25 H 141/75 96 Room Air 05/14/23 02:00 124 H 22 H 119/92 96 Room Air Intake & Output/Weight 05/12/23 05/13/23 05/14/23 05/15/23 06:59 06:59 06:59 06:59 Intake Total 236 / 236 Output Total 0 / 0 300 / 300 Balance 2018.208 -64 / -64 Weight 183.07 kg Vitals Last Vital Signs Temp 7.7 F L 05/14/23 12:00 Pulse 121 H 05/14/23 12:00 Resp 22 H 05/14/23 12:00 BP 165/87 05/14/23 12:00 Pulse Ox 96 05/14/23 12:00 O2 Del Method Room Air 05/14/23 12:00 TS Medications Medications Acetaminophen (Acetaminophen 500 Mg Tablet) 500 mg PO Q4H PRN PRN Reason: fever/pain Last Admin: 05/14/23 10:47 Dose: 500 mg Albuterol/Ipratropium (Ipratropium-Albuterol 3 Ml Neb) 3 ml INHALATION Q6H PRN PRN Reason: SHORTNESS OF BREATH Amoxicillin/Clavulanate Potassium (Amoxicillin-Clav 875-125 Mg Tablet) 1 tab PO BID [facility]; Protocol Last Admin: 05/14/23 08:53 Dose: 1 tab Lidocaine HCl 1.667 ml/Diphenhydramine HCl 4.165 mg/Al Hydrox/Mg Hydrox/Simethicone 1.667 ml 0 ml MUCOUS MEM Q4H PRN PRN Reason: MOUTH PAIN Doxycycline Monohydrate (Doxycycline 100 Mg Tablet) 100 mg PO BID [facility]; Protocol Last Admin: 05/14/23 08:54 Dose: 100 mg Enoxaparin Sodium (Enoxaparin 40 Mg/0.4 Ml Syringe) 40 mg SUBCUT Q24H LA Last Admin: 05/14/23 06:56 Dose: 40 mg Sodium Chloride (Sodium Chloride 0.9%) 1,000 mls @ 75 mls/hr IV .[id number] [facility] Last Admin: 05/14/23 06:56 Dose: 75 mls/hr Lisinopril (Lisinopril 20 Mg Tablet) 20 mg PO DAILY [facility] Last Admin: 05/14/23 08:54 Dose: 20 mg Morphine Sulfate (Morphine Ir 15 Mg Tablet) 15 mg PO Q6H PRN PRN Reason: MODERATE PAIN Ondansetron HCl (Ondansetron 2 Mg/Ml Sdv 2 Ml) 4 mg IVP Q6H PRN PRN Reason: NAUSEA AND VOMITING Prazosin HCl (Prazosin 1 Mg Capsule) 2 mg PO BEDTIME [facility] Discontinued Medications Diltiazem HCl (Diltiazem 5 Mg/Ml Sdv 5 Ml) 10 mg IVP ONCE ONE Stop: 05/14/23 01:57 Last Admin: 05/14/23 02:18 Dose: 10 mg Diltiazem HCl (Diltiazem 5 Mg/Ml Sdv 5 Ml) 10 mg IVP ONCE ONE Stop: 05/14/23 02:33 Last Admin: 05/14/23 02:36 Dose: 10 mg Sodium Chloride (Sodium Chloride 0.9%) 1,000 mls @ 999 mls/hr IV .Q1H1M ONE Stop: 05/14/23 00:22 Last Infusion: 05/14/23 02:27 Dose: Infused Sodium Chloride (Sodium Chloride 0.9%) 1,000 mls @ 999 mls/hr IV .Q1H1M ONE Stop: 05/14/23 02:04 Last Infusion: 05/14/23 02:27 Dose: Infused Diltiazem HCl 100 mg/ Sodium (Chloride) 100 mls @ 0 mls/hr IV .Q0M [facility]; Protocol Last Titration: 05/14/23 06:42 Dose: Infused Ibuprofen (Ibuprofen 600 Mg Tablet) 600 mg PO ONCE ONE Stop: 05/13/23 22:31 Last Admin: 05/13/23 22:34 Dose: 600 mg Iohexol (Iohexol 350 Mg/Ml 500 Ml Btl (Per Ml)) 0 ml IV ONCE ONE Stop: 05/14/23 11:00 Last Admin: 03/12/24 11:12 Dose: 122 ml Allergies pollen extracts Allergy (Verified 04/29/23 07:42) headache Home Medications sertraline 100 mg tablet 200 mg (2 x 100 mg) PO DAILY 30 days #60 tabs 03/07/23 [Rx Confirmed 05/14/23] meloxicam 15 mg tablet 15 mg PO DAILY PRN pain #30 tabs 03/14/23 [Rx Confirmed 05/14/23] omeprazole 20 mg capsule,delayed release 20 mg PO DAILY 30 days #30 caps 03/14/23 [Rx Confirmed 05/14/23] lisinopril 20 mg tablet 20 mg PO DAILY #30 tabs 03/22/23 [Rx Confirmed 05/14/23] amoxicillin 875 mg-potassium clavulanate 125 mg tablet 1 tab PO BID 10 days #20 tabs 05/13/23 [Rx] ibuprofen 800 mg tablet 800 mg PO Q8H PRN pain #60 tabs 05/13/23 [Rx] benztropine 1 mg tablet 1 mg PO BEDTIME PRN Mild Extrapyramidal symptoms 05/14/23 [History Confirmed 05/14/23] hydroxyzine HCl 10 mg tablet 10 mg PO BEDTIME PRN sleep 05/14/23 [History Confirmed 05/14/23] loxapine succinate 25 mg capsule 25 mg PO BEDTIME 05/14/23 [History Confirmed 05/14/23] prazosin 2 mg capsule 2 mg PO BEDTIME 05/14/23 [History Confirmed 05/14/23] Discharge Plan Discharge Patient Disposition: Home Condition: Stable Prescriptions: New amoxicillin-pot clavulanate 875-125 mg tablet 1 tab PO BID 10 Days Qty: 20 0RF ibuprofen 800 mg tablet 800 mg PO Q8H PRN (Reason: pain) Qty: 60 0RF No Action sertraline 100 mg tablet 200 mg PO DAILY 30 Days Qty: 60 3RF omeprazole 20 mg capsule,delayed release(DR/EC) 20 mg PO DAILY 30 Days Qty: 30 2RF meloxicam 15 mg tablet 15 mg PO DAILY PRN (Reason: pain) Qty: 30 2RF Rx Instructions: do not take ibuprofen or other nsaids with this lisinopril 20 mg tablet 20 mg PO DAILY Qty: 30 2RF loxapine succinate 25 mg capsule 25 mg PO BEDTIME benztropine 1 mg tablet 1 mg PO BEDTIME PRN (Reason: Mild Extrapyramidal symptoms) hydroxyzine HCl 10 mg tablet 10 mg PO BEDTIME PRN (Reason: sleep) prazosin 2 mg capsule 2 mg PO BEDTIME Referrals: [facility] [Outside] (Try taking your SD card out of your CPAP and then replace it and if still not working will need to purchase another SD card to use. If it still does not work you will need to call [facility] to follow up. ) Idalmis George, [Physician] - (We have notified your physician's clinic of the need for a follow-up appointment to be scheduled. If you have not heard from them within the next 2 business days, please call them directly. ) Discharge Diet: Usual diet Discharge Activity: Increase activity as tolerated Patient Instructions: Dental Abscess (ED), Opioid Safety Activity Restrictions/Additional Instructions: Augmentin as prescribed. Follow-up with dentist this week. Return with any new or worsening symptoms. Transfer Attestations Time Spent in Transfer Care: greater than 30 min Status at Transfer: Cognitive status at transfer: cognitively intact ; Behavioral status at transfer: cooperative ; Quality Metrics Clinical Quality Measures [ No reported AMI, CVA or VTE this stay] Coding Level of Care Code 12433 Total time (in minutes) for Discharge: 55 Diagnoses Schizoaffective disorder, depressive type F25.1 Schizoaffective disorder type: depressive Generalized anxiety disorder F41.1 Hypertension, unspecified type I10 Hypertension type: unspecified Atrial flutter with rapid ventricular response I48.92 Dehydration E86.0 Dental decay K02.9
[2023-05-14] MEDS: ketorolac 30 mg/mL INJ IVP (14:56)
--- NOTE | 2023-05-14 14:58 | PC.NURSE ---
pt and mother updated that plan is to transfer pt to [facility] for dental surgeon consult. and per doctor soco he has been accepted by the [facility].
--- NOTE | 2023-05-14 16:30 | PC.NURSE ---
informed pt and mother that pt got a bed and has been accepted at [facility] he is going to room 3116 [id number]
[2023-05-14] MEDS: labetalol 5 mg/mL SDV 20mL 10 MG IVP (18:00)
--- NOTE | 2023-05-14 18:38 | PC.NURSE ---
Report called to [facility] nurse Zoraida Guzman, RN report provided in regards to reason for transfer and pt's hospital condition and pmhx.
--- NOTE | 2023-05-14 18:43 | PC.NURSE ---
called ambulance they will be here in 20-25 mins.
--- NOTE | 2023-05-14 18:58 | PC.NURSE ---
Notified hospitalist Dr Hughes via telephone that Pt HR Sinus Tachy, 126-130s, elevated BP-194/128. Denies any chest pain/discomfort, no shortness of breath. his toothache is down to a rate of 2 per pain scale post administration on one dose IV toradol. Per Dr Hughes he will put order for a Labetalol. 1824 pm- BP post IV Labetalol is 131/71. HR- 110-112, ST...
== END 2023-05-14 19:57 | disposition short-term general hospital (02) ==
LOC: ER 05-14 03:38 → CSU 05-14 06:48
PROVIDERS: Physician Assistant; Admitting Provider Internal Medicine; Emergency Provider Internal Medicine; Visit Provider Internal Medicine
DX: K02.9 Dental caries, unspecified (principal); E86.0 Dehydration; I48.92 Unspecified atrial flutter; I10 Essential (primary) hypertension; F41.1 Generalized anxiety disorder; F25.1 Schizoaffective disorder, depressive type; E66.01 Morbid (severe) obesity due to excess calories; Z68.42 Body mass index [BMI] 45.0-49.9, adult
CPT/HCPCS: 36415; 70491; 71045; 71275; 80053; 80306; 81003; 83880; 84443; 84484; 85025; 85378; 87040; 93005; 96365; 96372; 96375; 96376; 99285; G0378; J1650; J1885; J3490; J7030; Q9967

== ENCOUNTER 2023-09-17 03:50 | Emergency (ER) | payer MEDICAID, SELFPAY ==
[2023-03-07 12:08] VITALS: BP 123/80; BMI 42.9
[2023-09-17 04:02] VITALS: BP 166/97; PULSE 108; RESP 18; TEMP 38.9; O2SAT 99; BMI 47.4
--- NOTE | 2023-09-17 04:12 | XRR_ITS ---
PROCEDURE INFORMATION: Exam: XR Chest Exam date and time: 09/17/2023 4:16 AM Age: 23 years old Clinical indication: Fever TECHNIQUE: Imaging protocol: Radiologic exam of the chest. Views: 1 view. COMPARISON: CT angio chest PE protcl [id number] 05/14/2023 11:03 AM FINDINGS: Lungs: Small calcified granuloma in the lateral right mid lung. Pleural spaces: Unremarkable. No pleural effusion. No pneumothorax. Heart/Mediastinum: Unremarkable. No cardiomegaly. Bones/joints: Unremarkable. XR/XR chest 1V portable [id number] IMPRESSION: No acute findings.
--- NOTE | 2023-09-17 05:25 | ED_ITS ---
Documented by User: Luis Armando Buchanan DO 09/17/23 05:44 HPI - Fever 2 General: Chief Complaint: Fever Stated Complaint: head pressure and pain Time Seen by Provider: 09/17/23 05:23 History of Present Illness: Patient presents to the ER with complaints of fever headache, dizziness, started yesterday morning about 8:00. And is progressively gotten worse. Patient states he does not normally get sick or has been around any sick contacts that he knows of. Patient has taken some migraine medicine for the headache but nothing for the fever. Patient denies any nausea vomiting diarrhea constipation coughs colds sore throats but does state he has been freezing and chilling for the last couple days. Review of Systems 2 General: Reports: 10 or more systems reviewed and unremarkable except in HPI and below PFSH ED 2 PFSH: Medical History Vaping nicotine dependence, tobacco product Sinus tachycardia GERD (gastroesophageal reflux disease) Generalized anxiety disorder Schizoaffective disorder Condyloma acuminatum due to human papillomavirus Morbid obesity with BMI of 40.0-44.9, adult Hypertension Surgical History No pertinent past surgical history Family History Grandmother Diabetes Mother Hypertension Other MDD (major depressive disorder), single episode, severe with psychotic features Social History Smoking and tobacco/nicotine status: current every day tobacco/nicotine user e- cigarettes E-Cigarette Details: vaporizer device and with nicotine E-cig/vape details: 0.6% only vape every 2 days and smokeless tobacco Smokeless tobacco user: chewing tobacco Smokeless tobacco details: 1 can every month Quit status (tobacco/nicotine): has quit using Year quit tobacco: 10/22 for 8 months Second hand smoke exposure: Yes Alcohol intake: current Alcohol intake frequency: holidays/special occasions only Substance/Drug Use: never Lives independently: Yes Household members: other Details: grandma Housing: Apartment Marital status: Single Highest education level completed: High School Graduate Current occupational status: unemployed Current occupational exposures/hazards: No Pets and animals: Yes Pets & animals: cat(s) Leisure activites: other Leisure activities details: video games, sleep Sexually active: No Current gender identity: Male Kat/Christianity: None Special kat needs: No Agree to transfusion: Yes Physical Exam 2 Const: COMMON NORMALS: no acute distress, average body habitus, patient oriented x3, no limitations, healthy appearing, alert and well nourished HENMT: COMMON NORMALS: normocephalic, atraumatic, hearing grossly normal bilaterally, external ears normal, Normal external nose present and moist oral mucous membranes HEAD & SCALP: normocephalic and atraumatic NOSE: Normal external nose present EXTERNAL EAR: Yes external ears normal Neck/C-Spine: COMMON NORMALS: full ROM, no lymphadenopathy, supple, no meningeal signs, no JVD and Thyroid normal THYROID: Thyroid normal Chest: COMMONS NORMALS: normal inspection of the chest and normal palpation of entire chest wall Resp: COMMON NORMALS: normal respiratory effort, No retractions, No use of accessory muscles and clear to auscultation bilaterally AUSCULTATION: clear to auscultation bilaterally Cardio: COMMON NORMALS: no JVD, regular rate, regular rhythm, S1 normal heart sound present, S2 normal heart sound present, No gallops present (Cardio), No clicks present (Cardio), No murmurs present (Cardio) and No rub (Cardio) R ATE: regular rate RHYTHM: regular rhythm HEART SOUNDS: S1 normal heart sound present and S2 normal heart sound present GI: COMMON NORMALS: Normal to inspection, nondistended, normoactive bowel sounds present, Soft to palpation, non-tender, No hepatosplenomegaly present and no masses PALPATION: Yes Soft to palpation and Yes No hepatosplenomegaly present Neuro: COMMON NORMALS: patient oriented x3 SENSORIUM/ORIENTATION: Yes alert MENINGEAL SIGNS: Yes no meningeal signs Course 2 Vital Signs: Vital signs: Vital Signs Temperature 98.4 F 09/17/23 07:47 Pulse Rate 115 H 09/17/23 06:31 Respiratory Rate 18 09/17/23 06:31 Blood Pressure 165/105 09/17/23 06:31 Pulse Oximetry 96 09/17/23 06:31 MDM - Fever Medical Records I reviewed the patient's medical records. Lab Data I reviewed the patient's lab results. 09/17/23 05:30 09/17/23 05:30 Radiology Impressions Chest X-Ray 09/17/23 04:12 IMPRESSION: No acute findings. Head CT 09/17/23 06:04 IMPRESSION: No acute intracranial abnormality. Laboratory Results WBC 6.67 10^3/uL (3.29-11.43) 09/17/23 05:30 RBC 5.19 10^6/uL (3.85-5.65) 09/17/23 05:30 Hgb 15.10 g/dL (11.27-16.99) 09/17/23 05:30 Hct 45.2 % (37-53) 09/17/23 05:30 MCV 87.1 fl (82-101) 09/17/23 05:30 MCH 29.1 pg (27-33) 09/17/23 05:30 MCHC 33.4 g/dL (30-55) 09/17/23 05:30 RDW 12.6 % (12.1-15.1) 09/17/23 05:30 Plt Count 241 10^3/cmm (157-399) 09/17/23 05:30 MPV 10.7 fL (7.4-10.4) H 09/17/23 05:30 Neut % (Auto) 76.1 % 09/17/23 05:30 Lymph % (Auto) 12.1 % 09/17/23 05:30 Shoshone % (Auto) 10.5 % 09/17/23 05:30 Eos % (Auto) 0.4 % 09/17/23 05:30 Baso % (Auto) 0.6 % 09/17/23 05:30 Neut # (Auto) 5.07 10^3/uL (1.8-7.7) 09/17/23 05:30 Lymph # (Auto) 0.8 10^3/uL (0.8-4.8) 09/17/23 05:30 Shoshone # (Auto) 0.7 10^3/uL (0.2-0.9) 09/17/23 05:30 Eos # (Auto) 0.0 10^3/uL (0.0-0.8) 09/17/23 05:30 Baso # (Auto) 0.0 10^3/uL (0.0-0.1) 09/17/23 05:30 Nucleated RBC % (auto) 0 % 09/17/23 05:30 Nucleated RBCs # 0.0 /100WBC 09/17/23 05:30 Sodium 139 mmol/L (136-145) 09/17/23 05:30 Potassium 3.9 mmol/L (3.5-5.1) 09/17/23 05:30 Chloride 104 mmol/L (98-107) 09/17/23 05:30 Carbon Dioxide 21 mmol/L (22-29) L 09/17/23 05:30 Anion Gap 17.9 (5-19) 09/17/23 05:30 BUN 11 mg/dL (6-20) 09/17/23 05:30 Creatinine 1.0 mg/dL (0.7-1.2) 09/17/23 05:30 GFR Calculation 93.4 mL/min (90-130) 09/17/23 05:30 Glucose 107 mg/dL (65-115) 09/17/23 05:30 Calculated Osmolality 288 mOsm/kg (285-295) 09/17/23 05:30 Lactic Acid 1.2 mmol/L (0.5-2.2) 09/17/23 05:30 Calcium 9.5 mg/dL (8.5-10.5) 09/17/23 05:30 Total Bilirubin 0.5 mg/dL (0.15-1.2) 09/17/23 05:30 AST 28 U/L (0-40) 09/17/23 05:30 ALT 42 U/L (0-41) H 09/17/23 05:30 Alkaline Phosphatase 60 U/L (40-130) 09/17/23 05:30 Creatine Kinase 108 U/L (39-308) 09/17/23 05:30 Total Protein 7.7 g/dL (6.6-8.7) 09/17/23 05:30 Albumin 4.3 g/dL (3.5-5.2) 09/17/23 05:30 Globulin 3.4 g/dL (1.3-4.6) 09/17/23 05:30 Lipase 15 U/L (13-60) 09/17/23 05:30 Urine Color Yellow (Yellow) 09/17/23 06:17 Urine Appearance Clear (CLEAR) 09/17/23 06:17 Urine pH 5 (5-7) 09/17/23 06:17 Ur Specific Royal 1.010 (1.005-1.030) 09/17/23 06:17 Urine Protein Neg (Negative) 09/17/23 06:17 Urine Glucose (UA) Norm (Normal) 09/17/23 06:17 Urine Ketones Negative (Negative) 09/17/23 06:17 Urine Blood 2+ (Negative) H 09/17/23 06:17 Urine Nitrate Negative (Negative) 09/17/23 06:17 Urine Bilirubin Neg (Negative) 09/17/23 06:17 Urine Urobilinogen Neg mg/dL (Negative) 09/17/23 06:17 Ur Leukocyte Esterase Negative (Negative) 09/17/23 06:17 Urine RBC Rare /hpf (0-2) 09/17/23 06:17 Urine WBC Rare /hpf (0-5) 09/17/23 06:17 Ur Squamous Epith Cells 0-4 /hpf (0-5) H 09/17/23 06:17 Amorphous Sediment Not Reportable 09/17/23 06:17 Urine Bacteria Trace /hpf (NONE) 09/17/23 06:17 Urine Mucus 1+ /hpf 09/17/23 06:17 Influenza Type A Ag negative (Negative) 09/17/23 05:30 Influenza Type B Ag negative (Negative) 09/17/23 05:30 SARS-CoV-2 Ag (Rapid) negative (Negative) 09/17/23 05:30 Group A Strep Rapid Negative (Negative) 09/17/23 05:30 All radiology interpretation(s) finalized by discharge Discharge Plan Discharge Patient Disposition: Home Clinical Impression: Viral URI Condition: Stable Prescriptions: No Action benztropine 1 mg tablet 1 mg PO BEDTIME PRN (Reason: Mild Extrapyramidal symptoms) Qty: 30 5RF hydroxyzine HCl 10 mg tablet 10 mg PO BEDTIME PRN (Reason: sleep) Qty: 30 5RF loxapine succinate 25 mg capsule 25 mg PO BEDTIME 30 Days Qty: 30 5RF prazosin 2 mg capsule 2 mg PO BEDTIME Qty: 30 5RF sertraline 100 mg tablet 200 mg PO DAILY 30 Days Qty: 60 5RF omeprazole 20 mg capsule,delayed release(DR/EC) See Rx Instructions .ROUTE .COMPLEX Qty: 30 2RF Dose Instruction: TAKE ONE CAPSULE BY MOUTH DAILY Rx Instructions: TAKE ONE CAPSULE BY MOUTH DAILY meloxicam 15 mg tablet See Rx Instructions .ROUTE .COMPLEX Qty: 30 2RF Dose Instruction: TAKE ONE TABLET BY MOUTH DAILY NEEDED FOR PAIN; DO not take ibuprofen OR other nsaids Rx Instructions: TAKE ONE TABLET BY MOUTH DAILY NEEDED FOR PAIN; DO not take ibuprofen OR other nsaids lisinopril 20 mg tablet 20 mg PO DAILY Qty: 30 2RF clonazepam 0.5 mg tablet See Rx Instructions .ROUTE .COMPLEX PRN (Reason: anxiety or sleep) 30 Days Qty: 30 1RF Rx Instructions: take a-half or whole tab po HS prn sleep or anxiety metoprolol tartrate 25 mg tablet 25 mg PO BID Qty: 60 0RF Discharge Orders: Discharge ED (Routine); Ordered 09/17/23 Ordered By: Jovani Dumont Patient Instructions: Opioid Safety, Pain Management Activity Restrictions/Additional Instructions: Thank you for choosing [facility] for your healthcare needs today. It is very important that you follow up as instructed or that you return to the Emergency Department should you have concerns or if your condition changes or worsens in any way. You were seen today for a fever your lab work did not show significant abnormality. COVID and flu swabs were negative. There is no sign of a bladder infection. Recommend Tylenol and ibuprofen for your fever and follow-up with your primary care doctor if not improving. Sign Out Sign Out Data: Patient Sign Out occurred on 09/17/23 at 06:02. Patient's care was discussed, and care was transferred from Luis Armando Buchanan DO to Jovani Dumont DO. Coding Level of Care Code ED Terminal Supervisor for Chg Fwd Documented by User: Jovani Dumont DO 09/17/23 07:49 HPI - Fever 2 General: Chief Complaint: Fever Stated Complaint: head pressure and pain Time Seen by Provider: 09/17/23 05:23 PFS ED 2 PFSH: Medical History Vaping nicotine dependence, tobacco product Sinus tachycardia GERD (gastroesophageal reflux disease) Generalized anxiety disorder Schizoaffective disorder Condyloma acuminatum due to human papillomavirus Morbid obesity with BMI of 40.0-44.9, adult Hypertension Surgical History No pertinent past surgical history Family History Grandmother Diabetes Mother Hypertension Other MDD (major depressive disorder), single episode, severe with psychotic features Social History Smoking and tobacco/nicotine status: current every day tobacco/nicotine user e- cigarettes E-Cigarette Details: vaporizer device and with nicotine E-cig/vape details: 0.6% only vape every 2 days and smokeless tobacco Smokeless tobacco user: chewing tobacco Smokeless tobacco details: 1 can every month Quit status (tobacco/nicotine): has quit using Year quit tobacco: 10/22 for 8 months Second hand smoke exposure: Yes Alcohol intake: current Alcohol intake frequency: holidays/special occasions only Substance/Drug Use: never Lives independently: Yes Household members: other Details: grandma Housing: Apartment Marital status: Single Highest education level completed: High School Graduate Current occupational status: unemployed Current occupational exposures/hazards: No Pets and animals: Yes Pets & animals: cat(s) Leisure activites: other Leisure activities details: video games, sleep Sexually active: No Current gender identity: Male Kat/Christianity: None Special kat needs: No Agree to transfusion: Yes Course 2 Vital Signs: Vital signs: Vital Signs Temperature 98.4 F 09/17/23 07:47 Pulse Rate 115 H 09/17/23 06:31 Respiratory Rate 18 09/17/23 06:31 Blood Pressure 165/105 09/17/23 06:31 Pulse Oximetry 96 09/17/23 06:31 MDM - Fever Medical Decision Making Care assumed to Dr. Buchanan from change of shift. Labs and imaging reviewed. Chest x-ray CT negative COVID and flu are negative no leukocytosis. On exam patient has no meningeal signs. His temperature has improved and normalized with antipyretics. Suspect viral upper respiratory infection treat symptomatically return if has further problems. Lab Data 09/17/23 05:30 09/17/23 05:30 Radiology Impressions Chest X-Ray 09/17/23 04:12 IMPRESSION: No acute findings. Head CT 09/17/23 06:04 IMPRESSION: No acute intracranial abnormality. Laboratory Results WBC 6.67 10^3/uL (3.29-11.43) 09/17/23 05:30 RBC 5.19 10^6/uL (3.85-5.65) 09/17/23 05:30 Hgb 15.10 g/dL (11.27-16.99) 09/17/23 05:30 Hct 45.2 % (37-53) 09/17/23 05:30 MCV 87.1 fl (82-101) 09/17/23 05:30 MCH 29.1 pg (27-33) 09/17/23 05:30 MCHC 33.4 g/dL (30-55) 09/17/23 05:30 RDW 12.6 % (12.1-15.1) 09/17/23 05:30 Plt Count 241 10^3/cmm (157-399) 09/17/23 05:30 MPV 10.7 fL (7.4-10.4) H 09/17/23 05:30 Neut % (Auto) 76.1 % 09/17/23 05:30 Lymph % (Auto) 12.1 % 09/17/23 05:30 Shoshone % (Auto) 10.5 % 09/17/23 05:30 Eos % (Auto) 0.4 % 09/17/23 05:30 Baso % (Auto) 0.6 % 09/17/23 05:30 Neut # (Auto) 5.07 10^3/uL (1.8-7.7) 09/17/23 05:30 Lymph # (Auto) 0.8 10^3/uL (0.8-4.8) 09/17/23 05:30 Shoshone # (Auto) 0.7 10^3/uL (0.2-0.9) 09/17/23 05:30 Eos # (Auto) 0.0 10^3/uL (0.0-0.8) 09/17/23 05:30 Baso # (Auto) 0.0 10^3/uL (0.0-0.1) 09/17/23 05:30 Nucleated RBC % (auto) 0 % 09/17/23 05:30 Nucleated RBCs # 0.0 /100WBC 09/17/23 05:30 Sodium 139 mmol/L (136-145) 09/17/23 05:30 Potassium 3.9 mmol/L (3.5-5.1) 09/17/23 05:30 Chloride 104 mmol/L (98-107) 09/17/23 05:30 Carbon Dioxide 21 mmol/L (22-29) L 09/17/23 05:30 Anion Gap 17.9 (5-19) 09/17/23 05:30 BUN 11 mg/dL (6-20) 09/17/23 05:30 Creatinine 1.0 mg/dL (0.7-1.2) 09/17/23 05:30 GFR Calculation 93.4 mL/min (90-130) 09/17/23 05:30 Glucose 107 mg/dL (65-115) 09/17/23 05:30 Calculated Osmolality 288 mOsm/kg (285-295) 09/17/23 05:30 Lactic Acid 1.2 mmol/L (0.5-2.2) 09/17/23 05:30 Calcium 9.5 mg/dL (8.5-10.5) 09/17/23 05:30 Total Bilirubin 0.5 mg/dL (0.15-1.2) 09/17/23 05:30 AST 28 U/L (0-40) 09/17/23 05:30 ALT 42 U/L (0-41) H 09/17/23 05:30 Alkaline Phosphatase 60 U/L (40-130) 09/17/23 05:30 Creatine Kinase 108 U/L (39-308) 09/17/23 05:30 Total Protein 7.7 g/dL (6.6-8.7) 09/17/23 05:30 Albumin 4.3 g/dL (3.5-5.2) 09/17/23 05:30 Globulin 3.4 g/dL (1.3-4.6) 09/17/23 05:30 Lipase 15 U/L (13-60) 09/17/23 05:30 Urine Color Yellow (Yellow) 09/17/23 06:17 Urine Appearance Clear (CLEAR) 09/17/23 06:17 Urine pH 5 (5-7) 09/17/23 06:17 Ur Specific Royal 1.010 (1.005-1.030) 09/17/23 06:17 Urine Protein Neg (Negative) 09/17/23 06:17 Urine Glucose (UA) Norm (Normal) 09/17/23 06:17 Urine Ketones Negative (Negative) 09/17/23 06:17 Urine Blood 2+ (Negative) H 09/17/23 06:17 Urine Nitrate Negative (Negative) 09/17/23 06:17 Urine Bilirubin Neg (Negative) 09/17/23 06:17 Urine Urobilinogen Neg mg/dL (Negative) 09/17/23 06:17 Ur Leukocyte Esterase Negative (Negative) 09/17/23 06:17 Urine RBC Rare /hpf (0-2) 09/17/23 06:17 Urine WBC Rare /hpf (0-5) 09/17/23 06:17 Ur Squamous Epith Cells 0-4 /hpf (0-5) H 09/17/23 06:17 Amorphous Sediment Not Reportable 09/17/23 06:17 Urine Bacteria Trace /hpf (NONE) 09/17/23 06:17 Urine Mucus 1+ /hpf 09/17/23 06:17 Influenza Type A Ag negative (Negative) 09/17/23 05:30 Influenza Type B Ag negative (Negative) 09/17/23 05:30 SARS-CoV-2 Ag (Rapid) negative (Negative) 09/17/23 05:30 Group A Strep Rapid Negative (Negative) 09/17/23 05:30 Discharge Plan Discharge Patient Disposition: Home Clinical Impression: Viral URI Condition: Stable Prescriptions: No Action benztropine 1 mg tablet 1 mg PO BEDTIME PRN (Reason: Mild Extrapyramidal symptoms) Qty: 30 5RF hydroxyzine HCl 10 mg tablet 10 mg PO BEDTIME PRN (Reason: sleep) Qty: 30 5RF loxapine succinate 25 mg capsule 25 mg PO BEDTIME 30 Days Qty: 30 5RF prazosin 2 mg capsule 2 mg PO BEDTIME Qty: 30 5RF sertraline 100 mg tablet 200 mg PO DAILY 30 Days Qty: 60 5RF omeprazole 20 mg capsule,delayed release(DR/EC) See Rx Instructions .ROUTE .COMPLEX Qty: 30 2RF Dose Instruction: TAKE ONE CAPSULE BY MOUTH DAILY Rx Instructions: TAKE ONE CAPSULE BY MOUTH DAILY meloxicam 15 mg tablet See Rx Instructions .ROUTE .COMPLEX Qty: 30 2RF Dose Instruction: TAKE ONE TABLET BY MOUTH DAILY NEEDED FOR PAIN; DO not take ibuprofen OR other nsaids Rx Instructions: TAKE ONE TABLET BY MOUTH DAILY NEEDED FOR PAIN; DO not take ibuprofen OR other nsaids lisinopril 20 mg tablet 20 mg PO DAILY Qty: 30 2RF clonazepam 0.5 mg tablet See Rx Instructions .ROUTE .COMPLEX PRN (Reason: anxiety or sleep) 30 Days Qty: 30 1RF Rx Instructions: take a-half or whole tab po HS prn sleep or anxiety metoprolol tartrate 25 mg tablet 25 mg PO BID Qty: 60 0RF Discharge Orders: Discharge ED (Routine); Ordered 09/17/23 Ordered By: Jovani Dumont Patient Instructions: Opioid Safety, Pain Management Activity Restrictions/Additional Instructions: Thank you for choosing [facility] for your healthcare needs today. It is very important that you follow up as instructed or that you return to the Emergency Department should you have concerns or if your condition changes or worsens in any way. You were seen today for a fever your lab work did not show significant abnormality. COVID and flu swabs were negative. There is no sign of a bladder infection. Recommend Tylenol and ibuprofen for your fever and follow-up with your primary care doctor if not improving. Sign Out Sign Out Data: Patient Sign Out occurred on 09/17/23 at 06:02. Patient's care was discussed, and care was transferred from Luis Armando Buchanan DO to Jovani Dumont DO. Coding Level of Care Code ED Terminal Supervisor for Dae Garcia
[2023-09-17] MEDS: sodium chloride 0.9% 1,000 ML 999 ML IV (05:40)
[2023-09-17] MEDS: acetaminophen 500 mg Tablet 1000 MG PO (05:40)
[2023-09-17 05:46] LABS: Basophils % 0.6 %; Eosinophils % 0.4 %; Hematocrit 45.2 % (37-53); Lymphocytes # 0.8 10^3/uL (0.8-4.8); Lymphocytes % 12.1 %; Mean Corpuscular HGB Conc 33.4 g/dL (30-55); Mean Corpuscular Hemoglobin 29.1 pg (27-33); Mean Corpuscular Volume 87.1 fl (82-101); Mean Platelet Volume 10.7 fL (7.4-10.4); Monocytes # 0.7 10^3/uL (0.2-0.9); Monocytes % 10.5 %; Neutrophils # 5.07 10^3/uL (1.8-7.7); Neutrophils % 76.1 %; Nucleated Red Blood Cells % 0 %; Platelet Count 241 10^3/cmm (157-399); Red Blood Count 5.19 10^6/uL (3.85-5.65); Red Cell Distribution Width 12.6 % (12.1-15.1); White Blood Count 6.67 10^3/uL (3.29-11.43)
[2023-09-17 05:48] LABS: Rapid Strep A Test Negative (Negative)
[2023-09-17 05:55] LABS: Influenza A by IFA negative (Negative); Influenza B by IFA negative (Negative); SARS Covid-2 Antigen negative (Negative)
[2023-09-17 05:57] LABS: Alanine Aminotransferase 42 U/L (0-41); Albumin Level 4.3 g/dL (3.5-5.2); Alkaline Phosphatase 60 U/L (40-130); Anion Gap 17.9 (5-19); Aspartate Amino Transferase 28 U/L (0-40); Blood Urea Nitrogen 11 mg/dL (6-20); Calcium 9.5 mg/dL (8.5-10.5); Carbon Dioxide 21 mmol/L (22-29); Chloride 104 mmol/L (98-107); Globulin 3.4 g/dL (1.3-4.6); Glomerular Filtration Rate 93.4 mL/min (90-130); Glucose 107 mg/dL (65-115); Osmolality Calculated 288 mOsm/kg (285-295); Potassium 3.9 mmol/L (3.5-5.1); Sodium 139 mmol/L (136-145); Total Bilirubin 0.5 mg/dL (0.15-1.2); Total Protein 7.7 g/dL (6.6-8.7)
--- NOTE | 2023-09-17 06:04 | CTR_ITS ---
PROCEDURE INFORMATION: Exam: CT Head Without Contrast Exam date and time: 09/17/2023 6:09 AM Age: 23 years old Clinical indication: Pain; Headache; Additional info: Headache fever TECHNIQUE: Imaging protocol: Computed tomography of the head without contrast. Radiation optimization: All CT scans at this facility use at least one of these dose optimization techniques: automated exposure control; mA and/or kV adjustment per patient size (includes targeted exams where dose is matched to clinical indication); or iterative reconstruction. COMPARISON: CT neck w con* [id number] 05/14/2023 10:58 AM RADIATION DOSE METRICS: Total DLP (mGy-cm): 1115 FINDINGS: Brain: Normal. No hemorrhage. Unremarkable white matter. No mass effect. Cerebral ventricles: No ventriculomegaly. Paranasal sinuses: Visualized sinuses are unremarkable. No fluid levels. Mastoid air cells: Visualized mastoid air cells are well aerated. Bones: Unremarkable. No acute fracture. Soft tissues: Unremarkable. CT/CT head wo con* [id number] IMPRESSION: No acute intracranial abnormality.
[2023-09-17 06:19] VITALS: BP 179/106; PULSE 115; RESP 18; O2SAT 96
[2023-09-17 06:23] LABS: Creatine Phosphokinase 108 U/L (39-308); Lactic Sepsis W/Reflex 1.2 mmol/L (0.5-2.2); Lipase 15 U/L (13-60)
[2023-09-17 06:30] LABS: Urine Appearance Clear (CLEAR); Urine Color Yellow (Yellow); pH Urine 5 (5-7)
[2023-09-17 06:31] VITALS: BP 165/105; PULSE 115; RESP 18; O2SAT 96
[2023-09-17 06:31] LABS: Add Urine Culture? No; Add Urine Microscopic? YES; Bacteria Urine TRACE /hpf; Bilirubin Urine Neg (Negative); Blood Urine 2+ (Negative); Glucose Urine UA Norm (Normal); Ketones Urine Negative (Negative); Leukocyte Esterase Urine Negative (Negative); Mucus Urine 1+ /hpf; Nitrate Urine Negative (Negative); Protein Urine Neg (Negative); RBC Urine RARE /hpf (0-2); Squamous Epithelial Cell Urine 0-4 /hpf (0-5); Urobilinogen Urine Neg (Negative); WBC Urine RARE /hpf (0-5)
[2023-09-17 07:47] VITALS: TEMP 36.9
== END 2023-09-17 07:55 | disposition home or self-care (01) ==
PROVIDERS: Emergency Medicine; Emergency Provider Family Medicine
DX: J06.9 Acute upper respiratory infection, unspecified (principal); Z11.52 Encounter for screening for COVID-19; I10 Essential (primary) hypertension; F17.220 Nicotine dependence, chewing tobacco, uncomplicated; F17.290 Nicotine dependence, other tobacco product, uncomplicated
CPT/HCPCS: 70450; 71045; 80053; 81001; 82550; 83605; 83690; 85025; 87081; 87426; 87804; 87880; 99284; J7030

== ENCOUNTER → 2024-06-29 09:52 | Outpatient (BNVA) | payer OTHER, SELFPAY ==
[2023-10-14 10:38] VITALS: BP 123/80; BMI 42.9
== END ==
PROVIDERS: Visit Provider Nurse Practitioner
DX: Z79.899 Other long term (current) drug therapy (principal); F20.9 Schizophrenia, unspecified; F41.1 Generalized anxiety disorder; F17.290 Nicotine dependence, other tobacco product, uncomplicated
CPT/HCPCS: 80061; 83036